=== PATIENT | female | born 1955 | race African-American/Black ===

== ENCOUNTER → 2018-12-09 | Day surgery (SDC) | payer MEDICARE, OTHER ==
[2018-12-06 15:40] LABS: BASOPHILS % 0.3 % (0.0-1.0); EOSINOPHILS # (AUTO) 0.3 (0.0-0.4); EOSINOPHILS % 3.6 % (0.0-6.0); HEMATOCRIT 40.4 % (34.2-44.1); HEMOGLOBIN 12.8 g/dL (12.0-16.0); LYMPHOCYTES # (AUTO) 2.4 (1.0-3.2); LYMPHOCYTES % 25.4 % (18.0-39.1); MEAN CORPUSCULAR HEMOGLOBIN 26.7 pg (28-32); MEAN CORPUSCULAR HGB CONC 31.7 g/dL (31-35); MEAN CORPUSCULAR VOLUME 84.2 fL (81-99); MONOCYTES # (AUTO) 0.7 (0.2-0.8); MONOCYTES % 7.2 % (4.4-11.3); NEUTROPHILS # (AUTO) 5.9 (2.1-6.9); NEUTROPHILS % 63.2 % (38.7-80.0); PLATELET COUNT 228 x10e3/uL (140-360); RED CELL DISTRIBUTION WIDTH 13.7 % (11.7-14.4)
[~2018-12-09] MED LIST: ANUSOL-HC30 GM RC; ASPIRIN325 MG PO; BUPROPION HCL75 MG PO; CLOPIDOGREL75 MG PO; FENTANYL CITRATE/PF 100MCG/2 ML INJ ONE; FOLIC ACID1 MG PO; FUROSEMIDE40 MG PO; HYDROCORTISONE25 MG RC; HYDROXYZINE HCL25 MG PO; LEVOTHYROXINE50 MCG PO; MONTELUKAST SOD10 MG PO; NORCO 10-325 T1 EACH PO; POTASSIUM CHLO10 ME1 PO; PROPOFOL IV EMULSION 10 MG/ML 20 ML VIAL ONE; PROVENTIL HFA6.7 GM INH; TRUSOPT10 ML OU
--- OUTSIDE RECORDS SUMMARY | 2018-12-09 08:08 | XMS REPORT | Continuity of Care Document ---
Author Author [facility] Interface Address Unknown Phone Unavailable Problems Problem Status Onset Date Classification Date Reported Comments Source Discharge Diagnosis: Medication reaction 08/03/2016 08/06/2016 [facility] OTHER Active 08/03/2016 [facility] ACUTE CVA, NON TPA Active 05/25/2016 [facility] NO BALANCE Active 05/25/2016 [facility] SYNCOPE Active 03/11/2016 [facility] DELIRIUM WORKUP Active 03/11/2016 [facility] LEFT SIDE SIDE Active 12/25/2014 [facility] Discharge Diagnosis: Poison trevon dermatitis 06/29/2014 07/02/2014 [facility] POISON TREVON FACE Active 06/29/2014 [facility] Discharge Diagnosis: Acute gastritis 04/05/2014 04/07/2014 [facility] ABD PAIN Active 03/30/2014 [facility] 511 Active 11/01/2011 [facility] 511. Active 11/01/2011 [facility] Back ache Active Problem 11/03/2011 [facility] Bronchitis Active Problem 11/03/2011 [facility] Depression Active Problem 11/03/2011 [facility] Asthma Resolved Problem 08/06/2016 [facility] Back ache Active Problem 08/06/2016 [facility] Bronchitis Active Problem 08/06/2016 [facility] CVA (<span [id number]</span>) Resolved Problem 08/06/2016 [facility] Depression Active Problem 08/06/2016 [facility] Chronic back pain Resolved Problem 08/06/2016 [facility] Chronic knee instability<sup>1</sup> Resolved Problem 08/06/2016 pain [facility] COPD Resolved Problem 08/06/2016 [facility] Glaucoma Resolved Problem 08/06/2016 [facility] TIA Resolved Problem 08/06/2016 [facility] PLEURISY W/O EFFUS OR TB Active [facility] Medications Medication Details Route Status Patient Instructions Ordering Provider Order Date Source Zofran 4 mg, Route: IVP, Drug form: INJ, ONCE, Dosing Weight 123.636, kg, Priority: STAT, Start date: 08/03/16 20:05:00 CDT, Stop date: 08/03/16 20:05:00 CDT Inactive 08/04/2016 [facility] Ativan 1 mg, Route: IVP, Drug form: INJ, ONCE, Dosing Weight 123.636, kg, Priority: STAT, Start date: 08/03/16 17:59:00 CDT, Stop date: 08/03/16 17:59:00 CDT Inactive 08/03/2016 [facility] Sodium Chloride 0.154 MEQ/ML Injectable Solution 1,000 mL, Rate: 125 ml/hr, Infuse over: 8 hr, Route: IV, Dosing Weight 123.636 kg, Total Volume: 1,000, Priority: STAT, Start date: 08/03/16 17:44:00 CDT, Duration: 1 doses or times, Stop date: 08/04/16 1:43:00 CDT Inactive 08/03/2016 [facility] Phenergan 25 mg, Route: IVPB, ONCE, Dosing Weight 123.636, kg, Priority: STAT, Start date: 08/03/16 17:44:00 CDT, Stop date: 08/03/16 17:44:00 CDT Inactive 08/03/2016 [facility] Folic Acid 1 mg, 1 tab, Route: PO, Drug form: TAB, Daily, Dosing Weight 129.148, kg, Start date: 05/27/16 9:00:00 CDT, Duration: 30 day, Stop date: 06/25/16 9:00:00 CDTNotes: (Same as: Folvite) Inactive 05/27/2016 [facility] Plavix 75 mg, 1 tab, Route: PO, Drug form: TAB, Daily, Dosing Weight 129.148, kg, Start date: 05/27/16 9:00:00 CDT, Duration: 30 day, Stop date: 06/25/16 9:00:00 CDTNotes: (Same As: Plavix) Inactive 05/27/2016 [facility] Aspirin 325 MG Oral Tablet 325 mg, 1 tab, Route: PO, Drug form: TAB, Daily, Dosing Weight 129.148, kg, Start date: 05/27/16 9:00:00 CDT, Duration: 30 day, Stop date: 06/25/16 9:00:00 CDTNotes: Take with food. Inactive 05/27/2016 [facility] Furosemide 40 MG Oral Tablet [Lasix] 40 mg, 1 tab, Route: PO, Drug form: TAB, Daily, Dosing Weight 129.148, kg, Start date: 05/27/16 9:00:00 CDT, Duration: 30 day, Stop date: 06/25/16 9:00:00 CDTNotes: (Same as: Lasix) May cause GI upset. Give with food or milk. Inactive 05/27/2016 [facility] Synthroid 100 microgram, 1 tab, Route: PO, Drug form: TAB, Q6AM, Dosing Weight 129.148, kg, Start date: 05/27/16 6:00:00 CDT, Duration: 30 day, Stop date: 06/25/16 6:00:00 CDTNotes: Take 1 hour before or 2 hours after meal; Enteral feeds may interefere with the absorption of this medication. (Same as:Levothroid, Synthroid) Inactive 05/27/2016 [facility] Clonazepam 1 mg, 1 tab, Route: PO, Drug form: TAB, Bedtime, Dosing Weight 129.148, kg, Start date: 05/26/16 21:00:00 CDT, Duration: 30 day, Stop date: 06/24/16 21:00:00 CDTNotes: (Same As: KlonoPIN) No Longer Active 05/27/2016 [facility] Lipitor 20 mg, 2 tab, Route: PO, Drug form: TAB, Bedtime, Dosing Weight 129.148, kg, Start date: 05/26/16 21:00:00 CDT, Duration: 30 day, Stop date: 06/24/16 21:00:00 CDTNotes: (Same As: Lipitor) No Longer Active 05/27/2016 [facility] atorvastatin 80 mg, 2 tab, Route: PO, Drug form: TAB, Bedtime, Dosing Weight 129.091, kg, Start date: 05/26/16 21:00:00 CDT, Duration: 30 day, Stop date: 06/24/16 21:00:00 CDTNotes: (Same as: Lipitor) No Longer Active 05/27/2016 [facility] Singulair 5 mg, 1 tab, Route: CHEW, Drug form: CHEWTAB, Bedtime, Dosing Weight 129.148, kg, Start date: 05/26/16 21:00:00 CDT, Duration: 30 day, Stop date: 06/24/16 21:00:00 CDTNotes: (Same as:Singulair) No Longer Active 05/27/2016 [facility] Flonase 0.05 mg/inh nasal spray 1 spray, Route: NASAL, Drug Form: SPRY, Dosing Weight 129.148, kg, BID, Start date: 05/26/16 17:00:00 CDT, Duration: 30 day, Stop date: 06/25/16 9:00:00 CDTNotes: (Same as: Flonase) No Longer Active 05/26/2016 [facility] Symbicort 160/4.5 inhalation aerosol with adapter 2 inhalation, Route: INHALATION, Drug Form: AERO/A, Dosing Weight 129.148, kg, BID, Start date: 05/26/16 17:00:00 CDT, Duration: 30 day, Stop date: 06/25/16 9:00:00 CDTNotes: (Same as: Symbicort) WASTE: Aerosol - Return to Pharmacy No Longer Active 05/26/2016 [facility] Potassium Chloride 10 MEQ Extended Release Tablet 10 mEq, 1 tab, Route: PO, Drug form: ERTAB, BID, Dosing Weight 129.148, kg, Start date: 05/26/16 17:00:00 CDT, Duration: 30 day, Stop date: 06/25/16 9:00:00 CDTNotes: (Same as: K-Dur 10) "Do Not Crush" With food and full glass of water No Longer Active 05/26/2016 [facility] Ativan 2 mg, 1 mL, Route: IVP, Drug form: INJ, ONCE, Dosing Weight 129.148, kg, PRN Other -See Comment, Start date: 05/26/16 13:56:00 CDT, before MRI examNotes: (Same as: Ativan) Inactive 05/26/2016 [facility] Wellbutrin XL 150 mg, 1 tab, Route: PO, Drug form: ERTAB, Q24H, Dosing Weight 129.148, kg, Start date: 05/26/16 12:00:00 CDT, Duration: 30 day, Stop date: 06/24/16 12:00:00 CDTNotes: (Same as: Wellbutrin XL) "Do Not Crush" No Longer Active 05/26/2016 [facility] Enoxaparin 40 mg, 0.4 mL, Route: SUB-Q, Drug form: INJ, [id number], Dosing Weight 129.148, kg, Consider for obese patients, Start date: 05/26/16 12:00:00 CDT, Duration: 30 day, Stop date: 06/25/16 0:00:00 CDTNotes: (Same as: Lovenox) No Longer Active 05/26/2016 [facility] Carafate 1 gm, 1 tab, Route: PO, Drug form: TAB, QID-Before Meals, Dosing Weight 129.148, kg, Start date: 05/26/16 11:30:00 CDT, Duration: 30 day, Stop date: 06/25/16 7:30:00 CDTNotes: May interfere w/enteral feeds - Take 1 hr before or 2 hr after antacids, dairy pdt, meals & minerals - On empty stomach. (Same As: Carafate) No Longer Active 05/26/2016 [facility] Acetaminophen 325 MG / Hydrocodone Bitartrate 10 MG Oral Tablet [Carnation 10/325] 1 tab, Route: PO, Drug Form: TAB, Dosing Weight 129.148, kg, BID, PRN Pain Score 4-6, Start date: 05/26/16 11:24:00 CDT, Duration: 30 day, Stop date: 06/25/16 11:23:00 CDTNotes: Do not exceed 4gm/day of acetaminophen. (Same as: Carnation 325/10) No Longer Active 05/26/2016 [facility] 200 ACTUAT Albuterol 0.09 MG/ACTUAT Metered Dose Inhaler 2 puff, Route: INHALATION, Drug Form: AERO/A, Dosing Weight 129.148, kg, QID, PRN Wheezing, Start date: 05/26/16 11:21:00 CDT, Duration: 30 day, Stop date: 06/25/16 11:20:00 CDTNotes: Albuterol 90 microgram/inh 8gm HFA WASTE: Aerosol - Return to Pharmacy Same as: Ventolin, Proventil No Longer Active 05/26/2016 [facility] Ativan 2 mg, 1 mL, Route: IVP, Drug form: INJ, ONCE, Dosing Weight 129.148, kg, PRN Other -See Comment, Start date: 05/26/16 11:12:00 CDT, Stop date: 05/26/16 11:12:00 CDT, before MRI examNotes: (Same as: Ativan) Inactive 05/26/2016 [facility] metoprolol tartrate 12.5 mg, 0.5 tab, Route: PO, Drug form: TAB, Q12H, Dosing Weight 129.091, kg, Start date: 05/26/16 9:00:00 CDT, Duration: 30 day, Stop date: 06/24/16 21:00:00 CDTNotes: (Same as: Lopressor) No Longer Active 05/26/2016 [facility] pneumococcal capsular polysaccharide type 1 vaccine / pneumococcal capsular polysaccharide type 10A vaccine / pneumococcal capsular polysaccharide type 11A vaccine / pneumococcal capsular polysaccharide type 12F vaccine / pneumococcal capsular polysacchar 0.5 mL, Route: IM, Drug Form: INJ, Daily, Start date: 05/26/16 9:00:00 CDT, Duration: 1 doses or times, Stop date: 05/26/16 9:00:00 CDTNotes: (Same as: Pneumovax 23) Refrigerate Inactive 05/26/2016 [facility] Saline Flush 0.9% 10 ml, Route: IVP, Drug Form: INJ, Dosing Weight 129.091, kg, Q12H, Start date: 05/26/16 9:00:00 CDT, Duration: 30 day, Stop date: 06/24/16 21:00:00 CDTNotes: (Same as: BD Posiflush) No Longer Active 05/26/2016 [facility] Famotidine 20 mg, 1 tab, Route: PO, Drug form: TAB, Q12H, Dosing Weight 129.091, kg, Start date: 05/26/16 9:00:00 CDT, Duration: 30 day, Stop date: 06/24/16 21:00:00 CDTNotes: (Same as: Pepcid) No Longer Active 05/26/2016 [facility] Zofran 4 mg, 2 mL, Route: IV, Drug form: INJ, Q4H, Dosing Weight 129.148, kg, PRN as needed for nausea/vomiting, Start date: 05/26/16 6:24:00 CDT, Duration: 30 day, Stop date: 06/25/16 6:23:00 CDTNotes: (Same as: Zofran) MEDICATION WASTE Product Size: 4 mg Product Wasted: ___ mg No Longer Active 05/26/2016 [facility] Aspirin 325 MG Oral Tablet 325 mg=1 tab, PO, Daily, # 30 tab, 0 Refill(s) Active 05/26/2016 [facility] pregabalin 100 MG Oral Capsule [Lyrica] 100 mg=1 cap, PO, Bedtime, 0 Refill(s) Active 05/26/2016 [facility] Sucralfate 1000 MG Oral Tablet [Carafate] 1 gm=1 tab, PO, QID-Before Meals, # 120 tab, 0 Refill(s) Active 05/26/2016 [facility] Morphine 2 mg, 1 mL, Route: IVP, Drug form: INJ, Q4H, Dosing Weight 129.091, kg, PRN Chest Pain, Start date: 05/26/16 5:00:00 CDT, Duration: 30 day, Stop date: 06/25/16 4:59:00 CDTNotes: (Same as:MORPhine Sulfate) No Longer Active 05/26/2016 [facility] Zofran 4 mg, Route: IVP, Drug form: INJ, ONCE, Dosing Weight 129.091, kg, Start date: 05/26/16 3:03:00 CDT, Stop date: 05/26/16 3:03:00 CDT Inactive 05/26/2016 [facility] Morphine 2 mg, 1 mL, Route: IVP, Drug form: INJ, ONCE, Dosing Weight 129.091, kg, Start date: 05/26/16 3:03:00 CDT, Stop date: 05/26/16 3:03:00 CDTNotes: (Same as:MORPhine Sulfate) Inactive 05/26/2016 [facility] Nitroglycerin 0.4 MG Sublingual Tablet 0.4 mg, 1 tab, Route: SL, Drug form: TAB, Q5Min, Dosing Weight 129.091, kg, PRN Chest Pain, Start date: 05/26/16 2:58:00 CDT, Duration: 30 day, Stop date: 06/25/16 2:57:00 CDTNotes: (Same as:Nitroquick, Nitrostat) "Do Not Crush" Sublingual tablet No Longer Active 05/26/2016 [facility] Morphine 2 mg, Route: IVP, ONCE, Dosing Weight 129.091, kg, Start date: 05/26/16 2:52:00 CDT, Stop date: 05/26/16 2:52:00 CDT Inactive 05/26/2016 [facility] Nitroglycerin 0.4 MG Sublingual Tablet 0.4 mg, 1 tab, Route: SL, Drug form: TAB, Q5Min, Dosing Weight 129.091, kg, PRN Chest Pain, Start date: 05/26/16 2:51:00 CDT, Duration: 30 day, Stop date: 06/25/16 2:50:00 CDTNotes: (Same as:Nitroquick, Nitrostat) "Do Not Crush" Sublingual tablet No Longer Active 05/26/2016 [facility] Aspirin 325 MG Enteric Coated Tablet 325 mg, 1 tab, Route: PO, Drug form: ECTAB, Daily, Dosing Weight 129.091, kg, Start date: 05/26/16 1:00:00 CDT, Duration: 30 day, Stop date: 06/24/16 9:00:00 CDTNotes: (Do Not Crush) Do not crush or chew. No Longer Active 05/26/2016 [facility] Saline Flush 0.9% 10 ml, Route: IVP, Drug Form: INJ, Dosing Weight 129.091, kg, PRN, PRN Line Flush, Start date: 05/26/16 0:37:00 CDT, Duration: 30 day, Stop date: 06/25/16 0:36:00 CDTNotes: (Same as: BD Posiflush) No Longer Active 05/26/2016 [facility] Sodium Chloride 0.154 MEQ/ML Injectable Solution 1,000 mL, Rate: 75 ml/hr, Infuse over: 13.3 hr, Route: IV, Dosing Weight 129.091 kg, Total Volume: 1,000, Start date: 05/26/16 0:37:00 CDT, Duration: 30 day, Stop date: 06/25/16 0:36:00 CDT No Longer Active 05/26/2016 [facility] Aspirin 325 MG Oral Tablet 325 mg, Route: PO, Drug form: TAB, ONCE, Dosing Weight 129.091, kg, Priority: STAT, Start date: 05/25/16 23:25:00 CDT, Stop date: 05/25/16 23:25:00 CDT Inactive 05/26/2016 [facility] Dilaudid 1 mg, 1 mL, Route: IVP, Drug form: INJ, ONCE, Dosing Weight 129.091, kg, Priority: STAT, Start date: 05/25/16 23:03:00 CDT, Stop date: 05/25/16 23:03:00 CDT Inactive 05/26/2016 [facility] Sodium Chloride 0.154 MEQ/ML Injectable Solution 1,000 mL, 1,000 ml/hr, Infuse Over: 1 hr, Route: IV, 1,000, Drug form: INJ, ONCE, Priority: STAT, Dosing Weight 129.091 kg, Start date: 05/25/16 18:28:00 CDT, Duration: 1 doses or times, Stop date: 05/25/16 18:28:00 CDT Inactive 05/25/2016 [facility] Saline Flush 0.9% 10 mL, Route: IVP, Drug Form: INJ, Dosing Weight 129.091, kg, PRN, PRN Line Flush, Start date: 05/25/16 18:28:00 CDT, Duration: 30 day, Stop date: 06/24/16 18:27:00 CDTNotes: (Same as: BD Posiflush) No Longer Active 05/25/2016 [facility] atorvastatin 20 MG Oral Tablet [Lipitor] 20 mg=1 tab, PO, Bedtime, # 30 tab, 0 Refill(s) Active 03/13/2016 [facility] Sulfamethoxazole 800 MG / Trimethoprim 160 MG Oral Tablet [Bactrim] 1 tab, PO, BID, X 6 day, # 12 tab, 0 Refill(s) Active 03/13/2016 [facility] 200 ACTUAT Albuterol 0.09 MG/ACTUAT Metered Dose Inhaler 2 puff, INHALATION, QID, PRN Wheezing, # 17 gm, 0 Refill(s) Active 03/13/2016 [facility] Aspirin 81 MG Enteric Coated Tablet 81 mg=1 tab, PO, Daily, 0 Refill(s) Active 03/13/2016 [facility] Albuterol 0.83 MG/ML Inhalant Solution 2.49 mg, 3 mL, Route: NEB, Drug form: SOLN, PRN, Dosing Weight 129.091, kg, PRN Respiratory Protocol, Priority: NOW, Start date: 03/13/16 16:15:00 CDT, Duration: 30 day, Stop date: 04/12/16 16:14:00 CDTNotes: SEE RT DOCUMENTATION (Same as: Proventil) Inactive 03/13/2016 [facility] Singulair 5 mg, 1 tab, Route: CHEW, Drug form: CHEWTAB, Bedtime, Dosing Weight 100, kg, Start date: 03/12/16 21:00:00 CDT, Duration: 30 day, Stop date: 04/10/16 21:00:00 CDTNotes: (Same as:Singulair) No Longer Active 03/13/2016 [facility] Clonazepam 1 mg, 1 tab, Route: PO, Drug form: TAB, Bedtime, Dosing Weight 100, kg, Start date: 03/12/16 21:00:00 CDT, Duration: 30 day, Stop date: 04/10/16 21:00:00 CDTNotes: (Same As: KlonoPIN) No Longer Active 03/13/2016 [facility] Wellbutrin XL 150 mg, 1 tab, Route: PO, Drug form: ERTAB, Daily, Start date: 03/12/16 12:30:00 CDT, Duration: 30 day, Stop date: 04/11/16 9:00:00 CDTNotes: (Same as: Wellbutrin XL) "Do Not Crush" No Longer Active 03/12/2016 [facility] Aspirin 325 MG Oral Tablet 325 mg=1 tab, PO, Daily, 0 Refill(s) No Longer Active 03/12/2016 [facility] Potassium Chloride 10 MEQ Extended Release Tablet 10 mEq=1 tab, PO, BID, 0 Refill(s) Active 03/12/2016 [facility] Levothyroxine Sodium 0.1 MG Oral Tablet [Synthroid] 100 microgram=1 tab, PO, Daily, 0 Refill(s) Active 03/12/2016 [facility] 24 HR Bupropion Hydrochloride 150 MG Extended Release Tablet [Wellbutrin] 150 mg=1 tab, PO, Q24H, 0 Refill(s) Active 03/12/2016 [facility] Saline Flush 0.9% 10 ml, Route: IVP, Drug Form: INJ, Dosing Weight 100, kg, Q12H, Start date: 03/12/16 9:00:00 CDT, Duration: 30 day, Stop date: 04/10/16 21:00:00 CDTNotes: Same as: BD Posiflush Sterile No Longer Active 03/12/2016 [facility] Folic Acid 1 mg, 1 tab, Route: PO, Drug form: TAB, Daily, Dosing Weight 100, kg, Start date: 03/12/16 9:00:00 CDT, Duration: 30 day, Stop date: 04/10/16 9:00:00 CDTNotes: (Same as: Folvite) No Longer Active 03/12/2016 [facility] Plavix 75 mg, 1 tab, Route: PO, Drug form: TAB, Daily, Dosing Weight 100, kg, Start date: 03/12/16 9:00:00 CDT, Duration: 30 day, Stop date: 04/10/16 9:00:00 CDTNotes: (Same As: Plavix) No Longer Active 03/12/2016 [facility] Wellbutrin SR 150 mg, 1 tab, Route: PO, Drug form: ERTAB, Daily, Dosing Weight 100, kg, Start date: 03/12/16 9:00:00 CDT, Duration: 30 day, Stop date: 04/10/16 9:00:00 CDTNotes: (Do not crush) (Same As: Wellbutrin SR) Inactive 03/12/2016 [facility] Aspirin 81 MG Enteric Coated Tablet 81 mg, 1 tab, Route: PO, Drug form: ECTAB, Daily, Dosing Weight 100, kg, Start date: 03/12/16 9:00:00 CDT, Duration: 30 day, Stop date: 04/10/16 9:00:00 CDTNotes: Do not crush or chew. (Same As: Ecotrin) No Longer Active 03/12/2016 [facility] Lovenox 40 mg, 0.4 mL, Route: SUB-Q, Drug form: INJ, Daily, Dosing Weight 100, kg, Start date: 03/12/16 9:00:00 CDT, Duration: 30 day, Stop date: 04/10/16 9:00:00 CDTNotes: (Same as: Lovenox) No Longer Active 03/12/2016 [facility] Symbicort 160/4.5 inhalation aerosol with adapter 2 inhalation, Route: INHALATION, Drug Form: AERO/A, Dosing Weight 100, kg, RBID, Start date: 03/12/16 8:00:00 CDT, Duration: 30 day, Stop date: 04/10/16 20:00:00 CDTNotes: (Same as: Symbicort) WASTE: Aerosol - Return to Pharmacy No Longer Active 03/12/2016 [facility] Synthroid 75 microgram, 1 tab, Route: PO, Drug form: TAB, [id number], Dosing Weight 100, kg, Start date: 03/12/16 6:30:00 CDT, Duration: 30 day, Stop date: 04/10/16 6:30:00 CDTNotes: Take 1 hour before or 2 hours after meal; Enteral feeds may interefere with the absorption of this medication. (Same as:Synthroid, Levothroid) No Longer Active 03/12/2016 [facility] Naproxen 500 mg, 1 tab, Route: PO, Drug form: TAB, ONCE, Dosing Weight 100, kg, Start date: 03/12/16 0:04:00 CDT, Stop date: 03/12/16 0:04:00 CDTNotes: (Same as: Naprosyn) Take with food. Inactive 03/12/2016 [facility] Ceftriaxone 1 gm, Route: IVPB, Drug form: PDR/INJ, [id number], Dosing Weight 100, kg, Start date: 03/12/16 0:00:00 CDT, Duration: 30 day, Stop date: 04/10/16 0:00:00 CDTNotes: (Same As: Rocephin). Use with 100 mL NS and infuse over 30 min MEDICATION WASTE Product Size: 1000 mg Product Wasted: ___ mg No Longer Active 03/12/2016 [facility] Acetaminophen 325 MG / Hydrocodone Bitartrate 10 MG Oral Tablet [Carnation 10/325] 1 tab, Route: PO, Drug Form: TAB, Dosing Weight 100, kg, Q6H, PRN Pain Score 7-10, Start date: 03/11/16 23:43:00 CDT, Duration: 30 day, Stop date: 04/10/16 23:42:00 CDTNotes: Do not exceed 4gm/day of acetaminophen. (Same as: Carnation 325/10) No Longer Active 03/12/2016 [facility] Aspirin 81 MG Enteric Coated Tablet 81 mg=1 tab, PO, Daily, # 90 tab, 3 Refill(s) No Longer Active 03/12/2016 [facility] Zofran 4 mg, 2 mL, Route: IV, Drug form: INJ, Q8H, Dosing Weight 100, kg, PRN as needed for nausea/vomiting, Start date: 03/11/16 23:38:00 CDT, Duration: 30 day, Stop date: 04/10/16 23:37:00 CDTNotes: (Same as: Zofran) MEDICATION WASTE Product Size: 4 mg Product Wasted: ___ mg No Longer Active 03/12/2016 [facility] Saline Flush 0.9% 10 ml, Route: IVP, Drug Form: INJ, Dosing Weight 100, kg, PRN, PRN Line Flush, Start date: 03/11/16 23:36:00 CDT, Duration: 30 day, Stop date: 04/10/16 23:35:00 CDTNotes: Same as: BD Posiflush Sterile No Longer Active 03/12/2016 [facility] Levothyroxine Sodium 0.075 MG Oral Tablet [Synthroid] 75 microgram=1 tab, PO, Daily, # 30 tab, 0 Refill(s) No Longer Active 03/12/2016 [facility] Acetaminophen 325 MG / Hydrocodone Bitartrate 10 MG Oral Tablet [Carnation 10/325] 1 tab, PO, BID, PRN for pain, # 24 tab, 0 Refill(s) Active 03/12/2016 [facility] Furosemide 40 MG Oral Tablet [Lasix] 40 mg=1 tab, PO, Daily, # 30 tab, 0 Refill(s) Active 03/12/2016 [facility] clonazePAM 1 mg oral tablet 1 mg=1 tab, PO, Bedtime, 0 Refill(s) Active 03/12/2016 [facility] Morphine 4 mg, 1 mL, Route: IVP, Drug form: INJ, ONCE, Dosing Weight 100, kg, Priority: STAT, Start date: 03/11/16 20:21:00 CDT, Stop date: 03/11/16 20:21:00 CDTNotes: (Same as:MORPhine Sulfate) Inactive 03/12/2016 [facility] iodixanol 100 mL, Route: IVP, Drug Form: SOLN, Dosing Weight 100, kg, ONCALL, STAT, Start date: 03/11/16 20:19:00 CDT, Duration: 1 doses or times, Dose=2.2ml/kg, Max [id number] -- "To be infused by Radiology Staff ONLY" Inactive 03/12/2016 [facility] Saline Flush 0.9% 10 mL, Route: IVP, Drug Form: INJ, Dosing Weight 100, kg, PRN, PRN Line Flush, Start date: 03/11/16 19:36:00 CDT, Duration: 30 day, Stop date: 04/10/16 19:35:00 CDTNotes: (Same as: BD Posiflush) No Longer Active 03/12/2016 [facility] predniSONE 20 mg oral tablet See Special Instructions, PO, Daily, 12 day regimen: Days 1-4 - 60 mg (3 tabs) daily Days 5-8 - 40 mg (2 tab) daily Days 9-12 - 20 mg (1 tab) daily, # 24 tab, 0 Refill(s)Special Instructions: 12 day regimen: Days 1-4 - 60 mg (3 tabs) daily Days 5-8 - 40 mg (2 tab) daily Days 9-12 - 20 mg (1 tab) daily Active 06/30/2014 [facility] Benadryl 50 mg, Route: PO, Drug form: CAP, ONCE, Dosing Weight 109.091, kg, Priority: STAT, Start date: 06/29/14 18:38:00, Stop date: 06/29/14 18:38:00 Inactive 06/29/2014 [facility] Famotidine 40 MG Oral Tablet [Pepcid] 1 tab, Route: PO, ONCE, Dosing Weight 109.091, kg, Start date: 06/29/14 18:38:00, Stop date: 06/29/14 18:38:00 Inactive 06/29/2014 [facility] Depo-Medrol 80 mg, 1 mL, Route: IM, Drug form: SUSP, ONCE, Dosing Weight 109.091, kg, Start date: 06/29/14 18:38:00, Stop date: 06/29/14 18:38:00Notes: (methylprednisolone acetate 80 mg/1 ml INJ VL) (Same as:Depo- Medrol) For IM use only. Inactive 06/29/2014 [facility] Famotidine 20 MG Oral Tablet 20 mg=1 tab, PO, BID, # 60 tab, 0 Refill(s) Active 04/05/2014 [facility] GI cocktail 30 mL, Route: PO, Dosing Weight 145.455, kg, ONCE, STAT, Start date: 04/05/14 4:32:00, Stop date: 04/05/14 4:32:00 Inactive 04/05/2014 [facility] Allergies, Adverse Reactions, Alerts Substance Category Reaction Severity Reaction type Status Date Reported Comments Source Latex Assertion Drug allergy Active [facility] penicillins Assertion Drug allergy Active [facility] theophylline Assertion Drug allergy Active [facility] Tylenol Assertion Drug allergy Active [facility] iodine Assertion Drug allergy Active [facility] Suboxone Assertion Drug allergy Active [facility] Tylenol<sup>1</sup> Assertion Drug allergy Active Pt only allergic to IV Acetaminophen. clarified with pt [facility] Immunizations Immunization Date Given Site Status Last Updated Comments Source pneumococcal 23-valent vaccine 05/26/2016 Not Given [facility] Results Order Name Results Value Reference Range Date Interpretation Comments Source CARDIAC ENZYMES Troponin-I null 0.00 - 0.40 08/04/2016 [facility] CARDIAC ENZYMES Troponin-I null 0.00 - 0.40 08/03/2016 [facility] CHEM PANEL B/C Ratio 14 6 - 25 08/03/2016 [facility] CHEM PANEL AGAP 15.3 meq/L 10.0 - 20.0 08/03/2016 [facility] CHEM PANEL A/G Ratio 1.1 0.7 - 1.6 08/03/2016 [facility] CHEM PANEL Globulin 3.4 g/dL 2.7 - 4.2 08/03/2016 [facility] CHEM PANEL eGFR 100 mL/min/1.73m2 08/03/2016 Result Comment: The eGFR is calculated using the CKD-EPI formula. In most young, healthy individuals the eGFR will be >90 mL/min/1.73m2. The eGFR declines with age. An eGFR of 60-89 may be normal in some populations, particularly the elderly, for whom the CKD-EPI formula has not been extensively validated. Use of the eGFR is not recommended in the following populations: Individuals with unstable creatinine concentrations, including patients and those with serious co-morbid conditions. Patients with extremes in muscle mass or diet. The data above are obtained from the National Kidney Disease Education Program (NKDEP) which additionally recommends that when the eGFR is used in patients with extremes of body mass index for purposes of drug dosing, the eGFR should be multiplied by the estimated BMI. [facility] CHEM PANEL Calcium Lvl 8.5 mg/dL 8.5 - 10.5 08/03/2016 [facility] CHEM PANEL BUN 11 mg/dL 7 - 22 08/03/2016 [facility] CHEM PANEL Glucose Lvl 137 mg/dL 70 - 99 08/03/2016 [facility] CHEM PANEL Creatinine Lvl 0.76 mg/dL 0.50 - 1.40 08/03/2016 [facility] CHEM PANEL Sodium Lvl 141 meq/L 135 - 145 08/03/2016 [facility] CHEM PANEL Potassium Lvl 3.3 meq/L 3.5 - 5.1 08/03/2016 [facility] CHEM PANEL Chloride Lvl 102 meq/L 95 - 109 08/03/2016 [facility] CHEM PANEL CO2 27 meq/L 24 - 32 08/03/2016 [facility] CHEM PANEL AST 16 unit/L 0 - 37 08/03/2016 [facility] CHEM PANEL ALT 11 unit/L 0 - 65 08/03/2016 [facility] CHEM PANEL Bili Total 0.6 mg/dL 0.2 - 1.3 08/03/2016 [facility] CHEM PANEL Alk Phos 92 unit/L 39 - 136 08/03/2016 [facility] CHEM PANEL Total Protein 7.1 g/dL 6.4 - 8.4 08/03/2016 [facility] CHEM PANEL Albumin Lvl 3.7 g/dL 3.5 - 5.0 08/03/2016 [facility] HEMATOLOGY Segs 44.1 % 45.0 - 75.0 08/03/2016 [facility] HEMATOLOGY Monocytes 6.4 % 2.0 - 12.0 08/03/2016 [facility] HEMATOLOGY Lymphocytes 44.9 % 20.0 - 40.0 08/03/2016 [facility] HEMATOLOGY Basophils 0.3 % 0.0 - 1.0 08/03/2016 [facility] HEMATOLOGY Eosinophils 4.3 % 0.0 - 4.0 08/03/2016 [facility] HEMATOLOGY Segs-Bands # 4.7 K/CMM 1.5 - 8.1 08/03/2016 [facility] HEMATOLOGY Lymphocytes # 4.8 K/CMM 1.0 - 5.5 08/03/2016 [facility] HEMATOLOGY Eosinophils # 0.5 K/CMM 0.0 - 0.5 08/03/2016 [facility] HEMATOLOGY Monocytes # 0.7 K/CMM 0.0 - 0.8 08/03/2016 [facility] HEMATOLOGY RBC 4.82 M/CMM 4.20 - 5.40 08/03/2016 [facility] HEMATOLOGY Hgb 13.2 g/dL 12.0 - 16.0 08/03/2016 [facility] HEMATOLOGY Hct 39.7 % 36.0 - 48.0 08/03/2016 [facility] HEMATOLOGY MCV 82.4 fL 80.0 - 98.0 08/03/2016 [facility] HEMATOLOGY MCH 27.4 pg 27.0 - 31.0 08/03/2016 [facility] HEMATOLOGY MCHC 33.2 g/dL 32.0 - 36.0 08/03/2016 [facility] HEMATOLOGY RDW 15.2 % 11.5 - 14.5 08/03/2016 [facility] HEMATOLOGY Platelet 224 K/CMM 133 - 450 08/03/2016 [facility] HEMATOLOGY MPV 8.2 fL 7.4 - 10.4 08/03/2016 [facility] HEMATOLOGY WBC 10.6 K/CMM 3.7 - 10.4 08/03/2016 [facility] Chest 1view DX Chest 1view DX EXAM: XR CHEST 1 VIEW DATE: 08/03/2016 at 1743 hours INDICATION: Chest pain COMPARISON: Chest radiograph on 05/25/2016 TECHNIQUE: AP chest FINDINGS: Lines and tubes: None. Lungs and pleura: The lung volumes are low with prominence of the interstitial vasculature which could be related to underinflation. There is prominence of the pulmonary vasculature. No pleural fluid or focal consolidation. Heart and mediastinum: The mediastinal silhouette is widened which is in part related to moderate rotation to the right. The cardiac silhouette is unchanged. Bones: No acute bony abnormality is identified. Abdomen: Left upper quadrant surgical clips are redemonstrated. IMPRESSION: Moderate mediastinal widening which is in part related to moderate rotation to the right and mediastinal fat. If indicated, an upright PA and lateral two view chest radiograph would be recommended for further evaluation. 08/03/2016 - - This report was dictated by a Merchandising Execution Associate/Fellow. I have personally reviewed the images as well as the Resident's interpretation and agree with the findings. Read by: Namrata Guillen MD Resident: Namrata Guillen MD Dictated Date/time: 08/03/16 17:49 Electronically Signed by: Talat Bladwin MD 08/03/16 21:47 FINAL REPORT [facility] HEMATOLOGY Protein C Func 90 % 72 - 147 05/27/2016 [facility] Protein S Func 67 % 54 - 137 05/27/2016 [facility] dRVV Ratio 0.79 <=1.20 05/27/2016 [facility] Hex Phos N Negative (05/27/16 10:13 AM) Negative 05/27/2016 [facility] Lup Interp Negative for lupus anticoagulant by DRVV screen and hexagonal phospholipidneutralization test. If there is a strong clinical suspicion of lupus anticoagulant,additional testing, to include repeat studies at a clinically appropriate interval and anticardiolipin antibody assays, is recommended.Interpretation performed at [facility]. 05/27/2016 [facility] AT III Func 94 % 77 - 140 05/27/2016 [facility] IMMUNOLOGY Cardiolipin IgA 0.6 APL-U/mL <=19.9 APL 05/27/2016 [facility] Cardiolipin IgM 0.5 MPL-U/mL <=19.9 MPL 05/27/2016 [facility] Cardiolipin IgG null <=19.9 GPL 05/27/2016 [facility] IMMUNOLOGY Beta2-Glycoprotein IgG null <=19.9 unit/mL 05/27/2016 [facility] Beta2-Glycoprotein IgA null <=19.9 unit/mL 05/27/2016 [facility] Beta2-Glycoprotein IgM 0.4 unit/mL <=19.9 unit/mL 05/27/2016 [facility] IMMUNOLOGY JAN Positive *ABN* (05/27/16 10:13 AM) Negative 05/27/2016 [facility] IMMUNOLOGY Homocyst Tot 8.7 umol/L 3.7 - 13.9 05/27/2016 [facility] Homocyst Tot 8.5 umol/L 3.7 - 13.9 05/27/2016 [facility] Cardiolipin IgG null <=19.9 GPL 05/27/2016 [facility] Cardiolipin IgA 0.5 APL-U/mL <=19.9 APL 05/27/2016 [facility] Cardiolipin IgM 0.4 MPL-U/mL <=19.9 MPL 05/27/2016 [facility] JAN Interp Pattern appears mixed Speckled and Homogeneous. 05/27/2016 [facility] JAN Titer 1:320 *ABN* (05/27/16 10:13 AM) Negative 05/27/2016 [facility] Brain wo contrast MRA Brain wo contrast MRA Brain wo contrast MRA CLINICAL HX: Aphasia; COMPARISON: none TECHNIQUE: 3-D [id number] images of the [place] were performed. Images were reformatted in the sagittal and coronal projections. FINDINGS: The petrous, cavernous, and supraclinoid portions of the carotids bilaterally demonstrate normal signal. The A1, A2, M1 and M2 segments of the anterior and middle cerebral arteries do not demonstrate any focal loss of signal to suggest any significant stenosis. No gross aneurysm is visualized in the anterior circulation. Both vertebral arteries, basilar artery, ORNAMENTAL METAL WORKER APPRENTICE, and SCA demonstrate normal signal. The AICAs are not well seen on either side. No gross aneurysm is identified in the posterior circulation. IMPRESSION: No significant abnormality is noted on the MRA of [place]. SL: [id number] 05/26/2016 - - Read by: Rocky Ramires MD Dictated Date/time: 05/26/16 15:43 Electronically Signed by: Rocky Ramires MD 05/26/16 15:46 FINAL REPORT [facility] Brain wo contrast MRI Brain wo contrast MRI Brain wo contrast MRI CLINICAL INDICATION: Aphasia; COMPARISON: CT head 05/25/2016 TECHNIQUE: Multiplanar imaging of the brain was performed without IV contrast. FINDINGS: SUPRATENTORIAL BRAIN: Small nonspecific focus of increased T2 signal is present in the right centrum semiovale. 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 The cortical parenchyma otherwise demonstrates normal signal with appropriate zuniga- white matter differentiation. No areas of restricted diffusion are visualized to suggest an acute infarct. There is no space-occupying lesion, mass effect or midline shift. No extra-axial fluid collection or intraparenchymal hemorrhage. BRAINSTEM AND CEREBELLUM: Cerebellar volume is within normal limits for patient's age.. No CP angle mass is visualized. IACs, brainstem and craniocervical junction are unremarkable. VISUALIZED VESSELS: The expected intracranial flow voids are present. SELLA, SKULL BASE AND ORBITS: The visualized orbits and optic chiasm are unremarkable. Pituitary gland demonstrates normal morphology. PARANASAL SINUSES AND MASTOIDS: The visualized paranasal sinuses are clear. The mastoid air cells are clear. IMPRESSION: No significant acute abnormality is noted on the non-IV contrast MRI of the brain. SL: [id number] 05/26/2016 - - Read by: Rocky Ramires MD Dictated Date/time: 05/26/16 15:32 Electronically Signed by: Rocky Ramires MD 05/26/16 15:42 FINAL REPORT [facility] CARDIAC ENZYMES Troponin-I null 0.00 - 0.40 05/26/2016 [facility] ELECTROLYTES AGAP 8.6 meq/L 10.0 - 20.0 05/26/2016 [facility] ELECTROLYTES Creatinine Lvl 0.85 mg/dL 0.50 - 1.40 05/26/2016 [facility] ELECTROLYTES BUN 14 mg/dL 7 - 22 05/26/2016 [facility] ELECTROLYTES Glucose Lvl 110 mg/dL 70 - 99 05/26/2016 [facility] ELECTROLYTES Calcium Lvl 8.4 mg/dL 8.5 - 10.5 05/26/2016 [facility] ELECTROLYTES eGFR 87 mL/min/1.73m2 05/26/2016 Result Comment: The eGFR is calculated using the CKD-EPI formula. In most young, healthy individuals the eGFR will be >90 mL/min/1.73m2. The eGFR declines with age. An eGFR of 60-89 may be normal in some populations, particularly the elderly, for whom the CKD-EPI formula has not been extensively validated. Use of the eGFR is not recommended in the following populations: Individuals with unstable creatinine concentrations, including patients and those with serious co-morbid conditions. Patients with extremes in muscle mass or diet. The data above are obtained from the National Kidney Disease Education Program (NKDEP) which additionally recommends that when the eGFR is used in patients with extremes of body mass index for purposes of drug dosing, the eGFR should be multiplied by the estimated BMI. [facility] ELECTROLYTES CO2 30 meq/L 24 - 32 05/26/2016 [facility] ELECTROLYTES Chloride Lvl 106 meq/L 95 - 109 05/26/2016 [facility] ELECTROLYTES Potassium Lvl 3.6 meq/L 3.5 - 5.1 05/26/2016 [facility] ELECTROLYTES Sodium Lvl 141 meq/L 135 - 145 05/26/2016 [facility] LIPIDS VLDL 20 05/26/2016 [facility] LIPIDS LDL (Calculated) 76 mg/dL <=99 mg/dL 05/26/2016 [facility] LIPIDS Trig 98 mg/dL <=149 mg/dL 05/26/2016 [facility] LIPIDS Chol 152 mg/dL <=199 mg/dL 05/26/2016 [facility] LIPIDS HDL 56 mg/dL >=61 mg/dL 05/26/2016 [facility] LIPIDS CHD Risk 2.71 3.90 - 5.80 05/26/2016 [facility] SPECIAL CHEMISTRY Hgb A1C 6.0 % <=5.6 % 05/26/2016 [facility] Carotid artery Doppler bilat US Carotid artery Doppler bilat US Patient Name: NAMRATA HORAN : 1955; Age: 60 years y/o Female MR: [id number] Study: Carotid artery Doppler bilat US 05/26/2016 12:37 AM CDT Ordering Physician: Tal Velasquez MD Clinical Indication: Aphasia; Comparison: None TECHNIQUE: Zuniga-scale, color Doppler and spectral Doppler of the carotid arteries was performed. Any reported ICA stenoses indirectly reference the distal internal carotid diameter as the denominator for the stenosis measurement, utilizing consensus panel criteria. FINDINGS: RIGHT: No significant plaque ICA PSV 79 cm/sec CCA PSV 87 cm/sec ICA/CCA ratio 0.9 Vertebral flow is antegrade. External carotid artery is patent. LEFT: No significant plaque ICA PSV 83 cm/sec CCA PSV 109 cm/sec ICA/CCA ratio 0.8 Vertebral flow is antegrade. External carotid artery is patent. IMPRESSION: 1. RIGHT: ICA stenosis <50 % by velocity criteria. 1. LEFT: ICA stenosis <50 % by velocity criteria. Consensus panel Doppler US criteria for diagnosis of ICA stenosis: Stenosis (%) ICA PSV (cm/sec) ICA/CCA ratio <50 <125 <2.0 50-69 125-230 2.0-4.0 >70 but less than >230 >4.0 near occlusion Near occlusion High, low, or Variable undetectable : [id number] 05/26/2016 - - Read by: Darin Devine MD Dictated Date/time: 05/26/16 08:34 Electronically Signed by: Darin Devine MD 05/26/16 08:37 FINAL REPORT [facility] CARDIAC ENZYMES Total CK 51 unit/L 12 - 191 05/26/2016 [facility] CARDIAC ENZYMES Troponin-I null 0.00 - 0.40 05/26/2016 [facility] CHEM PANEL Lactic Acid Lvl 1.9 mMol/L 0.5 - 2.2 05/26/2016 [facility] PTT 25.1 s 22.9 - 35.8 05/26/2016 [facility] PT 13.2 s 12.0 - 14.7 05/26/2016 [facility] INR 0.97 0.85 - 1.17 05/26/2016 [facility] Hgb 13.1 g/dL 12.0 - 16.0 05/26/2016 [facility] RDW 14.5 % 11.5 - 14.5 05/26/2016 [facility] MCV 81.6 fL 80.0 - 98.0 05/26/2016 [facility] MCHC 32.9 g/dL 32.0 - 36.0 05/26/2016 [facility] HEMATOLOGY Hct 39.7 % 36.0 - 48.0 05/26/2016 [facility] HEMATOLOGY MCH 26.8 pg 27.0 - 31.0 05/26/2016 [facility] HEMATOLOGY Platelet 206 K/CMM 133 - 450 05/26/2016 [facility] HEMATOLOGY MPV 8.9 fL 7.4 - 10.4 05/26/2016 [facility] HEMATOLOGY RBC 4.87 M/CMM 4.20 - 5.40 05/26/2016 [facility] HEMATOLOGY WBC 9.1 K/CMM 3.7 - 10.4 05/26/2016 [facility] HEMATOLOGY Monocytes # 0.7 K/CMM 0.0 - 0.8 05/26/2016 [facility] HEMATOLOGY Eosinophils # 0.2 K/CMM 0.0 - 0.5 05/26/2016 [facility] HEMATOLOGY Lymphocytes # 2.6 K/CMM 1.0 - 5.5 05/26/2016 [facility] HEMATOLOGY Segs 60.7 % 45.0 - 75.0 05/26/2016 [facility] Lymphocytes 28.8 % 20.0 - 40.0 05/26/2016 [facility] HEMATOLOGY Eosinophils 2.6 % 0.0 - 4.0 05/26/2016 [facility] Segs-Bands # 5.5 K/CMM 1.5 - 8.1 05/26/2016 [facility] HEMATOLOGY Monocytes 7.4 % 2.0 - 12.0 05/26/2016 [facility] HEMATOLOGY Basophils 0.5 % 0.0 - 1.0 05/26/2016 [facility] URINE AND STOOL UA Urobilinogen <=1.0 mg/dL 0.1 - 1.0 05/26/2016 [facility] URINE AND STOOL UA RBC 1 /HPF 0 - 2 05/26/2016 [facility] URINE AND STOOL UA Mucus Few /LPF None Seen /LPF 05/26/2016 [facility] URINE AND STOOL UA Blood Negative (05/26/16 2:53 AM) Negative 05/26/2016 [facility] URINE AND STOOL UA Sq Epi Occasional /LPF Few /LPF 05/26/2016 [facility] URINE AND STOOL UA Leuk Est Trace *ABN* (05/26/16 2:53 AM) Negative 05/26/2016 [facility] URINE AND STOOL UA Nitrite Negative (05/26/16 2:53 AM) Negative 05/26/2016 [facility] URINE AND STOOL UA Protein Negative mg/dL Negative mg/dL 05/26/2016 [facility] URINE AND STOOL UA Ketones Negative mg/dL Negative mg/dL 05/26/2016 [facility] URINE AND STOOL UA Bili Negative *NA* (05/26/16 2:53 AM) Negative 05/26/2016 [facility] URINE AND STOOL UA Glucose Negative mg/dL Negative mg/dL 05/26/2016 [facility] URINE AND STOOL UA WBC 2 /HPF 0 - 5 05/26/2016 [facility] URINE AND STOOL UA pH 5.0 5.0 - 8.0 05/26/2016 [facility] URINE AND STOOL UA Spec Grav 1.021 <=1.030 05/26/2016 [facility] URINE AND STOOL UA Turbidity Clear (05/26/16 2:53 AM) Clear 05/26/2016 [facility] URINE AND STOOL UA Color Yellow *NA* (05/26/16 2:53 AM) Yellow 05/26/2016 [facility] URINE AND STOOL UA Turbidity Clear (05/25/16 9:13 PM) Clear 05/26/2016 [facility] URINE AND STOOL UA Nitrite Negative (05/25/16 9:13 PM) Negative 05/26/2016 [facility] URINE AND STOOL UA Bili Negative *NA* (05/25/16 9:13 PM) Negative 05/26/2016 [facility] URINE AND STOOL UA Blood Negative (05/25/16 9:13 PM) Negative 05/26/2016 [facility] URINE AND STOOL UA RBC null 0 - 2 05/26/2016 [facility] URINE AND STOOL UA Leuk Est Negative (05/25/16 9:13 PM) Negative 05/26/2016 [facility] URINE AND STOOL UA WBC 1 /HPF 0 - 5 05/26/2016 [facility] URINE AND STOOL UA Sq Epi Occasional /LPF Few /LPF 05/26/2016 [facility] URINE AND STOOL UA Bacteria Occasional /HPF None Seen /HPF 05/26/2016 [facility] URINE AND STOOL UA Urobilinogen <=1.0 mg/dL 0.1 - 1.0 05/26/2016 [facility] URINE AND STOOL UA Color Ltyellow 05/26/2016 [facility] URINE AND STOOL UA Spec Grav 1.017 <=1.030 05/26/2016 [facility] URINE AND STOOL UA Protein Negative mg/dL Negative mg/dL 05/26/2016 [facility] URINE AND STOOL UA Glucose Negative mg/dL Negative mg/dL 05/26/2016 [facility] URINE AND STOOL UA pH 6.0 5.0 - 8.0 05/26/2016 [facility] URINE AND STOOL UA Ketones Negative mg/dL Negative mg/dL 05/26/2016 [facility] CARDIAC ENZYMES CK MB 0.5 ng/mL 0.5 - 3.6 05/26/2016 [facility] CARDIAC ENZYMES Total CK 70 unit/L 12 - 191 05/26/2016 [facility] CARDIAC ENZYMES BNP 20 pg/mL <=100 pg/mL 05/26/2016 [facility] CARDIAC ENZYMES Troponin-I null 0.00 - 0.40 05/26/2016 [facility] CARDIAC ENZYMES CK MB Index 0.7 0.0 - 2.5 05/26/2016 [facility] ELECTROLYTES Chloride Lvl 103 meq/L 95 - 109 05/26/2016 [facility] ELECTROLYTES CO2 31 meq/L 24 - 32 05/26/2016 [facility] Total Protein 7.7 g/dL 6.4 - 8.4 05/26/2016 [facility] ELECTROLYTES Calcium Lvl 8.6 mg/dL 8.5 - 10.5 05/26/2016 [facility] ELECTROLYTES AST 13 unit/L 0 - 37 05/26/2016 [facility] ELECTROLYTES ALT 13 unit/L 0 - 65 05/26/2016 [facility] ELECTROLYTES Potassium Lvl 3.6 meq/L 3.5 - 5.1 05/26/2016 [facility] ELECTROLYTES Alk Phos 103 unit/L 39 - 136 05/26/2016 [facility] Albumin Lvl 3.8 g/dL 3.5 - 5.0 05/26/2016 [facility] eGFR 78 mL/min/1.73m2 05/26/2016 Result Comment: The eGFR is calculated using the CKD-EPI formula. In most young, healthy individuals the eGFR will be >90 mL/min/1.73m2. The eGFR declines with age. An eGFR of 60-89 may be normal in some populations, particularly the elderly, for whom the CKD-EPI formula has not been extensively validated. Use of the eGFR is not recommended in the following populations: Individuals with unstable creatinine concentrations, including patients and those with serious co-morbid conditions. Patients with extremes in muscle mass or diet. The data above are obtained from the National Kidney Disease Education Program (NKDEP) which additionally recommends that when the eGFR is used in patients with extremes of body mass index for purposes of drug dosing, the eGFR should be multiplied by the estimated BMI. [facility] ELECTROLYTES A/G Ratio 1.0 0.7 - 1.6 05/26/2016 [facility] ELECTROLYTES B/C Ratio 15 6 - 25 05/26/2016 [facility] ELECTROLYTES Globulin 3.9 g/dL 2.7 - 4.2 05/26/2016 [facility] ELECTROLYTES AGAP 7.6 meq/L 10.0 - 20.0 05/26/2016 [facility] ELECTROLYTES Bili Total 0.4 mg/dL 0.2 - 1.3 05/26/2016 [facility] ELECTROLYTES Glucose Lvl 92 mg/dL 70 - 99 05/26/2016 [facility] ELECTROLYTES Sodium Lvl 138 meq/L 135 - 145 05/26/2016 [facility] ELECTROLYTES Creatinine Lvl 0.94 mg/dL 0.50 - 1.40 05/26/2016 [facility] ELECTROLYTES BUN 14 mg/dL 7 - 22 05/26/2016 [facility] MCHC 32.8 g/dL 32.0 - 36.0 05/26/2016 [facility] RDW 14.2 % 11.5 - 14.5 05/26/2016 [facility] Platelet 214 K/CMM 133 - 450 05/26/2016 [facility] MPV 9.1 fL 7.4 - 10.4 05/26/2016 [facility] MCH 26.7 pg 27.0 - 31.0 05/26/2016 [facility] RBC 5.00 M/CMM 4.20 - 5.40 05/26/2016 [facility] MCV 81.4 fL 80.0 - 98.0 05/26/2016 [facility] Hgb 13.3 g/dL 12.0 - 16.0 05/26/2016 [facility] Hct 40.7 % 36.0 - 48.0 05/26/2016 [facility] WBC 10.1 K/CMM 3.7 - 10.4 05/26/2016 [facility] HEMATOLOGY PT 12.8 s 12.0 - 14.7 05/26/2016 [facility] HEMATOLOGY INR 0.93 0.85 - 1.17 05/26/2016 [facility] PTT 25.3 s 22.9 - 35.8 05/26/2016 [facility] Lymphocytes # 2.9 K/CMM 1.0 - 5.5 05/26/2016 [facility] Basophils 0.7 % 0.0 - 1.0 05/26/2016 [facility] Segs-Bands # 6.3 K/CMM 1.5 - 8.1 05/26/2016 [facility] Monocytes # 0.7 K/CMM 0.0 - 0.8 05/26/2016 [facility] Eosinophils 2.5 % 0.0 - 4.0 05/26/2016 [facility] Monocytes 6.6 % 2.0 - 12.0 05/26/2016 [facility] Lymphocytes 28.3 % 20.0 - 40.0 05/26/2016 [facility] HEMATOLOGY Segs 61.9 % 45.0 - 75.0 05/26/2016 [facility] Basophils # 0.1 K/CMM 0.0 - 0.2 05/26/2016 [facility] Eosinophils # 0.3 K/CMM 0.0 - 0.5 05/26/2016 [facility] Chest 1view DX Chest 1view DX Study: Chest 1view DX Clinical Indication: Dizziness Comparison: Chest x-ray from 03/11/2016 FINDINGS: The cardiac silhouette is normal in size. The lungs are clear and without consolidation or congestion. No pleural effusion or pneumothorax is seen. The osseous structures are unremarkable. IMPRESSION: No acute cardiopulmonary disease. SL: [id number] 05/25/2016 - - Read by: Chuck Ivan MD Dictated Date/time: 05/25/16 20:48 Electronically Signed by: Chuck Ivan MD 05/25/16 20:49 FINAL REPORT [facility] Brain wo contrast CT Brain wo contrast CT EXAM: CT BRAIN WITHOUT CONTRAST DATE: 05/25/2016 6:28 PM CDT INDICATION: Altered level of consciousness left sided weakness. Slurred speech. COMPARISON: CT head of 03/11/2016. TECHNIQUE: Routine axial CT images of the brain were obtained. IV contrast: None. DLP: mGy-cm FINDINGS: Non-contrast images of the head demonstrate no edema, hemorrhage, mass lesion or other acute intracranial abnormality. 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 Galindo-white matter distinction is preserved. The ventricles are normal. The basal cisterns and sulci are normal in size. Mild chronic inflammatory change of the paranasal sinus. Partial opacification of the mastoid air cells. IMPRESSION: 1. No definite acute infarct or intracranial hemorrhage detected. If there is further concern for intracranial pathology or acute stroke, MRI of the brain may be performed for complete assessment. SL: [id number] 05/25/2016 - - Read by: Jose Alberto Green MD Dictated Date/time: 05/25/16 19:11 Electronically Signed by: Jose Alberto Green MD 05/25/16 19:13 FINAL REPORT [facility] CHEM PANEL Bili Indirect 0.4 mg/dL 0.0 - 1.0 03/13/2016 [facility] CHEM PANEL Bili Total 0.5 mg/dL 0.2 - 1.3 03/13/2016 [facility] CHEM PANEL Bili Direct 0.1 mg/dL 0.0 - 0.3 03/13/2016 [facility] CHEM PANEL Total Protein 6.0 g/dL 6.4 - 8.4 03/13/2016 [facility] CHEM PANEL Albumin Lvl 2.8 g/dL 3.5 - 5.0 03/13/2016 [facility] CHEM PANEL Alk Phos 80 unit/L 39 - 136 03/13/2016 [facility] CHEM PANEL ALT 15 unit/L 0 - 65 03/13/2016 [facility] CHEM PANEL AST 17 unit/L 0 - 37 03/13/2016 [facility] CHEM PANEL Globulin 3.2 g/dL 2.0 - 4.0 03/13/2016 [facility] CHEM PANEL A/G Ratio 0.9 0.7 - 1.6 03/13/2016 [facility] LIPIDS VLDL 18 03/13/2016 [facility] LIPIDS Chol 143 mg/dL <=199 mg/dL 03/13/2016 [facility] LIPIDS HDL 46 mg/dL >=61 mg/dL 03/13/2016 [facility] LIPIDS Trig 92 mg/dL <=149 mg/dL 03/13/2016 [facility] LIPIDS LDL (Calculated) 79 mg/dL <=99 mg/dL 03/13/2016 [facility] LIPIDS CHD Risk 3.11 3.90 - 5.80 03/13/2016 [facility] DRUG SCREEN UDS Note See Note (03/12/16 4:37 PM) 03/12/2016 [facility] DRUG SCREEN U Methadone Scr Negative *NA* (03/12/16 4:37 PM) Negative 03/12/2016 [facility] DRUG SCREEN U Propoxyph Scr Negative *NA* (03/12/16 4:37 PM) Negative 03/12/2016 [facility] DRUG SCREEN U Phencyc Scr Negative *NA* (03/12/16 4:37 PM) Negative 03/12/2016 [facility] DRUG SCREEN U Benzodia Scr Negative *NA* (03/12/16 4:37 PM) Negative 03/12/2016 [facility] DRUG SCREEN U Cocaine Scr Negative *NA* (03/12/16 4:37 PM) Negative 03/12/2016 [facility] DRUG SCREEN U Opiate Scr Positive *ABN* (03/12/16 4:37 PM) Negative 03/12/2016 [facility] DRUG SCREEN U Cannab Scr Negative *NA* (03/12/16 4:37 PM) Negative 03/12/2016 [facility] DRUG SCREEN U Amph Scr Positive *ABN* (03/12/16 4:37 PM) Negative 03/12/2016 [facility] DRUG SCREEN U Adele Scr Negative *NA* (03/12/16 4:37 PM) Negative 03/12/2016 [facility] HEMATOLOGY Sed Rate 8 mm/h 0 - 20 03/12/2016 [facility] CARDIAC ENZYMES CK MB Index 0.4 0.0 - 2.5 03/12/2016 [facility] CARDIAC ENZYMES CK MB 0.9 ng/mL 0.5 - 3.6 03/12/2016 [facility] CARDIAC ENZYMES Troponin-T null 0.000 - 0.100 03/12/2016 [facility] CARDIAC ENZYMES Troponin-I null 0.00 - 0.40 03/12/2016 [facility] CARDIAC ENZYMES Total CK 212 unit/L 12 - 191 03/12/2016 Result Comment: Specimen Grossly Hemolyzed. [facility] CARDIAC ENZYMES CK MB Index 0.9 0.0 - 2.5 03/12/2016 [facility] CARDIAC ENZYMES CK MB 0.8 ng/mL 0.5 - 3.6 03/12/2016 [facility] CARDIAC ENZYMES Troponin-T null 0.000 - 0.100 03/12/2016 [facility] CARDIAC ENZYMES Troponin-I null 0.00 - 0.40 03/12/2016 [facility] CARDIAC ENZYMES Total CK 89 unit/L 12 - 191 03/12/2016 [facility] CHEM PANEL Magnesium Lvl 2.0 mg/dL 1.8 - 2.4 03/12/2016 [facility] IMMUNOLOGY C-REACTIVE PROTEIN 3.5 mg/L <=2.9 mg/L 03/12/2016 [facility] URINE AND STOOL UA Blood Negative (03/11/16 10:13 PM) Negative 03/12/2016 [facility] URINE AND STOOL UA Urobilinogen 1.0 EU/dL 0.1 - 1.0 03/12/2016 [facility] URINE AND STOOL UA Bili Negative *NA* (03/11/16 10:13 PM) Negative 03/12/2016 [facility] URINE AND STOOL UA Glucose Negative (03/11/16 10:13 PM) Negative 03/12/2016 [facility] URINE AND STOOL UA Ketones Trace *ABN* (03/11/16 10:13 PM) Negative 03/12/2016 [facility] URINE AND STOOL UA Protein Negative (03/11/16 10:13 PM) Negative 03/12/2016 [facility] URINE AND STOOL UA pH 5.5 5.0 - 8.0 03/12/2016 [facility] URINE AND STOOL UA Turbidity Clear (03/11/16 10:13 PM) Clear 03/12/2016 [facility] URINE AND STOOL UA Spec Grav 1.015 <=1.030 03/12/2016 [facility] URINE AND STOOL UA Color Yellow *NA* (03/11/16 10:13 PM) Yellow 03/12/2016 [facility] URINE AND STOOL UA Leuk Est Negative (03/11/16 10:13 PM) Negative 03/12/2016 [facility] URINE AND STOOL UA Nitrite Positive *ABN* (03/11/16 10:13 PM) Negative 03/12/2016 [facility] URINE AND STOOL UA WBC 0-2 /HPF None Seen /HPF 03/12/2016 [facility] URINE AND STOOL UA Sq Epi Few /LPF Few /LPF 03/12/2016 [facility] URINE AND STOOL UA Mucus Few /LPF None Seen /LPF 03/12/2016 [facility] URINE AND STOOL UA Bacteria Few /HPF None Seen /HPF 03/12/2016 [facility] URINE AND STOOL UA RBC None Seen (03/11/16 10:13 PM) 0 - 2 03/12/2016 [facility] CHEM PANEL eGFR 58 mL/min/1.73m2 03/12/2016 Result Comment: The eGFR is calculated using the CKD-EPI formula. In most young, healthy individuals the eGFR will be >90 mL/min/1.73m2. The eGFR declines with age. An eGFR of 60-89 may be normal in some populations, particularly the elderly, for whom the CKD-EPI formula has not been extensively validated. Use of the eGFR is not recommended in the following populations: Individuals with unstable creatinine concentrations, including patients and those with serious co-morbid conditions. Patients with extremes in muscle mass or diet. The data above are obtained from the National Kidney Disease Education Program (NKDEP) which additionally recommends that when the eGFR is used in patients with extremes of body mass index for purposes of drug dosing, the eGFR should be multiplied by the estimated BMI. [facility] CHEM PANEL POC Creatinine 1.2 mg/dL 0.5 - 1.4 03/12/2016 [facility] CARDIAC ENZYMES CK MB Index 0.6 0.0 - 2.5 03/12/2016 [facility] CARDIAC ENZYMES Troponin-I null 0.00 - 0.40 03/12/2016 [facility] CARDIAC ENZYMES CK MB 0.8 ng/mL 0.5 - 3.6 03/12/2016 [facility] CARDIAC ENZYMES Total CK 132 unit/L 12 - 191 03/12/2016 [facility] CHEM PANEL eGFR 61 mL/min/1.73m2 03/12/2016 Result Comment: The eGFR is calculated using the CKD-EPI formula. In most young, healthy individuals the eGFR will be >90 mL/min/1.73m2. The eGFR declines with age. An eGFR of 60-89 may be normal in some populations, particularly the elderly, for whom the CKD-EPI formula has not been extensively validated. Use of the eGFR is not recommended in the following populations: Individuals with unstable creatinine concentrations, including patients and those with serious co-morbid conditions. Patients with extremes in muscle mass or diet. The data above are obtained from the National Kidney Disease Education Program (NKDEP) which additionally recommends that when the eGFR is used in patients with extremes of body mass index for purposes of drug dosing, the eGFR should be multiplied by the estimated BMI. [facility] CHEM PANEL Chloride Lvl 105 meq/L 95 - 109 03/12/2016 [facility] CHEM PANEL Potassium Lvl 3.9 meq/L 3.5 - 5.1 03/12/2016 [facility] CHEM PANEL CO2 26 meq/L 24 - 32 03/12/2016 [facility] CHEM PANEL Calcium Lvl 9.0 mg/dL 8.5 - 10.5 03/12/2016 [facility] CHEM PANEL BUN 10 mg/dL 7 - 22 03/12/2016 [facility] CHEM PANEL Glucose Lvl 99 mg/dL 70 - 99 03/12/2016 [facility] CHEM PANEL AGAP 13.9 meq/L 10.0 - 20.0 03/12/2016 [facility] CHEM PANEL Creatinine Lvl 1.15 mg/dL 0.50 - 1.40 03/12/2016 [facility] CHEM PANEL Sodium Lvl 141 meq/L 135 - 145 03/12/2016 [facility] HEMATOLOGY Segs 63.6 % 45.0 - 75.0 03/12/2016 [facility] HEMATOLOGY Lymphocytes # 3.4 K/CMM 1.0 - 5.5 03/12/2016 [facility] HEMATOLOGY Monocytes # 1.0 K/CMM 0.0 - 0.8 03/12/2016 [facility] HEMATOLOGY Basophils # 0.1 K/CMM 0.0 - 0.2 03/12/2016 [facility] HEMATOLOGY Eosinophils # 0.2 K/CMM 0.0 - 0.5 03/12/2016 [facility] HEMATOLOGY Lymphocytes 26.1 % 20.0 - 40.0 03/12/2016 [facility] HEMATOLOGY Monocytes 8.0 % 2.0 - 12.0 03/12/2016 [facility] HEMATOLOGY Eosinophils 1.6 % 0.0 - 4.0 03/12/2016 [facility] HEMATOLOGY Basophils 0.7 % 0.0 - 1.0 03/12/2016 [facility] HEMATOLOGY Segs-Bands # 8.3 K/CMM 1.5 - 8.1 03/12/2016 [facility] HEMATOLOGY PTT 24.4 s 22.9 - 35.8 03/12/2016 [facility] HEMATOLOGY PT 13.5 s 12.0 - 14.7 03/12/2016 [facility] HEMATOLOGY INR 1.00 0.85 - 1.17 03/12/2016 [facility] HEMATOLOGY MCV 83.1 fL 80.0 - 98.0 03/12/2016 [facility] HEMATOLOGY Hct 41.6 % 36.0 - 48.0 03/12/2016 [facility] HEMATOLOGY WBC 13.1 K/CMM 3.7 - 10.4 03/12/2016 [facility] HEMATOLOGY Hgb 13.5 g/dL 12.0 - 16.0 03/12/2016 [facility] HEMATOLOGY RBC 5.01 M/CMM 4.20 - 5.40 03/12/2016 [facility] HEMATOLOGY RDW 14.8 % 11.5 - 14.5 03/12/2016 [facility] HEMATOLOGY MCHC 32.4 g/dL 32.0 - 36.0 03/12/2016 [facility] HEMATOLOGY MCH 26.9 pg 27.0 - 31.0 03/12/2016 [facility] HEMATOLOGY Platelet 232 K/CMM 133 - 450 03/12/2016 [facility] HEMATOLOGY MPV 8.9 fL 7.4 - 10.4 03/12/2016 [facility] Chest 1view DX Chest 1view DX EXAM: XR CHEST 1 VIEW DATE: 03/11/2016 7:36 PM CDT INDICATION: Altered level of consciousness COMPARISON: November 01, 2011 TECHNIQUE: AP chest FINDINGS: Heart size is within normal limits. The lungs are hypoinflated with vascular crowding and minimal bibasilar subsegmental atelectasis. There is no focal consolidation within the lungs. No evidence of pleural effusion or pneumothorax. 3 surgical clips overlie the left upper quadrant. Degenerative changes of the spine. IMPRESSION: No acute radiographic abnormality of the chest. 03/11/2016 - - This report was dictated by a Merchandising Execution Associate/Fellow. I have personally reviewed the images as well as the Resident's interpretation and agree with the findings. Read by: Sylvester Lunsford MD Resident: Sylvester Lunsford MD Dictated Date/time: 03/11/16 21:06 Electronically Signed by: Darin Salguero MD 03/12/16 00:27 FINAL REPORT [facility] Brain/Neck Stroke perfusion CTA Brain/Neck Stroke perfusion CTA EXAM: CTA BRAIN EXAM: CTA NECK EXAM: CT PERFUSION BRAIN DATE: 03/11/2016 at 7:59 PM CDT INDICATION: Altered level of consciousness COMPARISON: CT brain 03/11/2016 at 7:49 PM. TECHNIQUE: - Dynamic CT perfusion images on a limited area of the brain parenchyma are performed during bolus injection of iodinated contrast material. Color maps of relative cerebral blood flow, relative cerebral blood volume, time to peak, and mean transit time are created on an independent workstation and are submitted along with the source image data. -Rapid acquisition spiral CT images of the brain and neck were obtained between the aortic arch and the cranial vertex during intravenous infusion of iodinated contrast for the purposes of CT angiography. 3-D CT angiographic images are created using MIP technique at the acquisition workstation. The source images are also presented for interpretation. IV contrast: 100 cc of Visipaque 320. DLP: 3479 mGy-cm FINDINGS: NECK CTA: Aortic arch: Atherosclerotic calcification is noted within the wall of the aortic arch without stenosis. The great vessels originate from the aortic arch in the standard configuration. No origin stenosis is identified. The vertebral artery origins are patent bilaterally. Carotid arteries: The cervical common carotid arteries and cervical internal carotid arteries have a normal course, caliber, and contour. There is no carotid bifurcation stenosis. There is no evidence of vascular injury. Vertebral arteries: The vertebral arteries have a normal course, caliber and contour. The soft tissues of the neck and other incidental structures are normal. BRAIN CTA: Anterior circulation: Normal appearance and a standard branching pattern. No branch occlusion, vascular injury, arteritis, vascular malformation or aneurysm is identified. Posterior circulation: Normal appearance and a standard branching pattern. No branch occlusion, vascular injury, arteritis, vascular malformation or aneurysm is identified. The deep cerebral veins and major venous sinuses are normal. The brain parenchyma and other incidental structures are unremarkable. CT PERFUSION: There is no regional abnormality in cerebral blood flow, cerebral blood volume, or transit time in the imaged areas of the brain to suggest active oligemia or infarction. RAPID infusion imaging demonstrates CBF <30% volume: <1 cc. Perfusion Tmax> 6.0s volume: 3.9 cc artifactual within the bilateral frontal regions. Mismatch volume: 3.9 cc. Mismatch ratio: infinite. IMPRESSION: 1. Normal CTA of the head. 2. Normal CTA of the neck. 3. Normal CT perfusion. (All qualitative and quantitative assessments of carotid bifurcation and proximal internal carotid artery stenosis are made referencing the distal internal carotid artery {NASCET criteria}.) Resident preliminary report by Dr. Sylvester Lunsford: Perfusion: negative CTA: negative. No acute occlusion, aneurysm, vascular malformation or dissection. 03/11/2016 - - Read by: Fan Lei MD Dictated Date/time: 03/12/16 00:33 Electronically Signed by: Fan Lei MD 03/12/16 00:38 FINAL REPORT [facility] Brain Stroke wo contrast CT Brain Stroke wo contrast CT CT HEAD WITHOUT CONTRAST DATE: 03/11/2016 at 7:49 PM COMPARISON: 12/25/2014, studies dating back to 06/06/2008. HISTORY: Altered level of consciousness. TECHNIQUE: Contiguous axial images of the brain were obtained without intravenous contrast administration. Sagittal and coronal reformatted images were also provided. DLP: 787 mGy-cm. FINDINGS: Encephalomalacia is again noted within the right occipital lobe consistent with remote ORNAMENTAL METAL WORKER APPRENTICE territory infarct. There are no acute hemorrhages or acute infarcts. The zuniga-white interfaces are otherwise well defined. There are no mass lesions or extra axial collections. There are no acute bony abnormalities. The calvarium is intact. IMPRESSION: 1. No acute intracranial abnormality. 2. 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 Resident preliminary report by Dr. Sylvester Lunsford: Neg acute Small area of encephalomalacia in the R occipital lobe unchanged from CT on 03/02/2010. 03/11/2016 - - Read by: Fan Lei MD Dictated Date/time: 03/12/16 00:30 Electronically Signed by: Fan Lei MD 03/12/16 00:33 FINAL REPORT [facility] Spine lumbar 2 or 3 views DX Spine lumbar 2 or 3 views DX Lumbosacral spine, 3 view: Exam reason: See Clinic indication backache AP, lateral and coned lateral views of the lumbar spine were obtained. Marginal spurring is noted at the visualized lower thoracic and lumbar vertebral bodies. Degenerative arthropathy is noted at the lower lumbar apophyseal joints. Lumbar vertebral body heights and interspaces are otherwise well-maintained. There is no acute fracture, dislocation or spondylolisthesis noted. SL:12 12/25/2014 - - Read by: Gregorio Ortega MD Dictated Date/time: 12/25/14 22:37 Electronically Signed by: Gregorio Ortega MD 12/25/14 22:38 FINAL REPORT [facility] Spine thoracic 3 views DX Spine thoracic 3 views DX Thoracic spine, 3 view: Exam reason: See Clinic IndicationPain, Thoracic region AP, lateral and swimmer's view were obtained. Minimal thoracic curvature convex to the right is noted. Degenerative disc disease is noted at the thoracic intervertebral disc spaces. Marginal spurring is noted at the thoracic vertebrae. Mild to moderate thoracic spondylosis is noted. Thoracic paraspinous stripes are normal. No acute fracture, dislocation or spondylolisthesis is noted. SL:12/25/2014 - - Read by: Gregorio Ortega MD Dictated Date/time: 12/25/14 22:38 Electronically Signed by: Gregorio Ortega MD 12/25/14 22:40 FINAL REPORT [facility] Shoulder series DX Shoulder series DX Left shoulder, 3 views: Exam reason: Trauma, pain. Degenerative changes are noted at the acromioclavicular joint. There is no acute fracture or dislocation noted. SL:12/25/2014 - - Read by: Gregorio Ortega MD Dictated Date/time: 12/25/14 22:39 Electronically Signed by: Gregorio Ortega MD 12/25/14 22:39 FINAL REPORT [facility] Brain wo contrast CT Brain wo contrast CT CT scan of the head without contrast: Exam reason: Headache with Dizziness and Giddiness See Clinic Indication Multiple computerized axial tomograms of the head were obtained without contrast. There is no acute cortical infarction, mass lesion or hemorrhage noted. There is no mass-effect or midline shift demonstrated. The ventricles are normal in size, shape and position. The base of skull and bony calvarium are intact. IMPRESSION: No acute intracranial abnormality noted. SL:12/25/2014 - - Read by: Gregorio Ortega MD Dictated Date/time: 12/25/14 22:04 Electronically Signed by: Gregorio Ortega MD 12/25/14 22:05 FINAL REPORT [facility] Spine cervical wo contrast CT Spine cervical wo contrast CT CT scan of the cervical spine without contrast: Exam reason: Spinal Trauma See Clinic IndicationPain, Cervical region Multiple computerized axial tomograms of the cervical spine were obtained without contrast. Sagittal and coronal reformation images were obtained. 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 There is no adjacent soft tissue swelling noted. The lateral masses of C1 and C2 are well aligned. The dens is intact. Narrowing of the interspaces at C4-C5, C5-C6, C6-C7 and C7-T1 are noted consistent with degenerative disc disease. The cervical vertebral body heights and interspaces are otherwise maintained. Degenerative arthropathy is noted at the atlantoaxial joint. Detail within the cervical spinal canal is limited by beam hardening artifact. Cervical curvature convex to the left is noted. Degenerative changes are noted at the cervical apophyseal joints. Reversal of the usual cervical lordosis is noted. Mild to moderate cervical spondylosis is noted. IMPRESSION: 1. There is no acute fracture or dislocation noted at the cervical spine. 2. 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 SL:12 12/25/2014 - - Read by: Gregorio Ortega MD Dictated Date/time: 12/25/14 22:05 Electronically Signed by: Gregorio Ortega MD 12/25/14 22:10 FINAL REPORT [facility] CHEM PANEL Lipase Lvl 75 unit/L 73 - 393 04/05/2014 [facility] CHEM PANEL Bili Indirect 0.4 mg/dL 0.0 - 1.0 04/05/2014 [facility] CHEM PANEL Globulin 4.0 g/dL 2.0 - 4.0 04/05/2014 [facility] CHEM PANEL A/G Ratio 0.8 0.7 - 1.6 04/05/2014 [facility] CHEM PANEL AST 18 unit/L 0 - 37 04/05/2014 [facility] CHEM PANEL Alk Phos 96 unit/L 39 - 136 04/05/2014 [facility] CHEM PANEL Bili Total 0.5 mg/dL 0.2 - 1.3 04/05/2014 [facility] CHEM PANEL Bili Direct 0.1 mg/dL 0.0 - 0.3 04/05/2014 [facility] CHEM PANEL Total Protein 7.3 g/dL 6.4 - 8.4 04/05/2014 [facility] CHEM PANEL Albumin Lvl 3.3 g/dL 3.5 - 5.0 04/05/2014 [facility] CHEM PANEL ALT 17 unit/L 0 - 65 04/05/2014 [facility] ELECTROLYTES AGAP 7.8 meq/L 10.0 - 20.0 04/05/2014 [facility] ELECTROLYTES eGFR 95 mL/min/1.73m2 04/05/2014 1Result Comment: The eGFR is calculated using the CKD-EPI formula. In most young, healthy individuals the eGFR will be >90 mL/min/1.73m2. The eGFR declines with age. An eGFR of 60-89 may be normal in some populations, particularly the elderly, for whom the CKD-EPI formula has not been extensively validated. Use of the eGFR is not recommended in the following populations: Individuals with unstable creatinine concentrations, including patients and those with serious co-morbid conditions. Patients with extremes in muscle mass or diet. The data above are obtained from the National Kidney Disease Education Program (NKDEP) which additionally recommends that when the eGFR is used in patients with extremes of body mass index for purposes of drug dosing, the eGFR should be multiplied by the estimated BMI. [facility] ELECTROLYTES Calcium Lvl 9.1 mg/dL 8.5 - 10.5 04/05/2014 [facility] ELECTROLYTES Sodium Lvl 139 meq/L 135 - 145 04/05/2014 [facility] ELECTROLYTES Creatinine Lvl 0.8 mg/dL 0.5 - 1.4 04/05/2014 [facility] ELECTROLYTES Potassium Lvl 3.8 meq/L 3.5 - 5.1 04/05/2014 [facility] ELECTROLYTES Chloride Lvl 106 meq/L 95 - 109 04/05/2014 [facility] ELECTROLYTES CO2 29 meq/L 24 - 32 04/05/2014 [facility] ELECTROLYTES Glucose Lvl 101 mg/dL 70 - 99 04/05/2014 2Interpretive Data: Adult reference range values reflect the clinical guidelines of the [place] [employer]. [facility] ELECTROLYTES BUN 10 mg/dL 7 - 22 04/05/2014 [facility] HEMATOLOGY Segs-Bands # 6.5 K/CMM 1.5 - 8.1 04/05/2014 [facility] HEMATOLOGY Lymphocytes # 2.5 K/CMM 1.0 - 5.5 04/05/2014 [facility] HEMATOLOGY Eosinophils # 0.4 K/CMM 0.0 - 0.5 04/05/2014 [facility] HEMATOLOGY Basophils # 0.0 K/CMM 0.0 - 0.2 04/05/2014 [facility] HEMATOLOGY Lymphocytes 24.9 % 20.0 - 40.0 04/05/2014 [facility] HEMATOLOGY Monocytes 6.3 % 2.0 - 12.0 04/05/2014 [facility] HEMATOLOGY Segs 64.3 % 45.0 - 75.0 04/05/2014 [facility] HEMATOLOGY Monocytes # 0.6 K/CMM 0.0 - 0.8 04/05/2014 [facility] HEMATOLOGY Eosinophils 4.3 % 0.0 - 4.0 04/05/2014 [facility] HEMATOLOGY Basophils 0.2 % 0.0 - 1.0 04/05/2014 [facility] HEMATOLOGY MPV 8.5 fL 7.4 - 10.4 04/05/2014 [facility] HEMATOLOGY Platelet 224 K/CMM 133 - 450 04/05/2014 [facility] HEMATOLOGY RDW 13.6 % 11.5 - 14.5 04/05/2014 [facility] HEMATOLOGY WBC 10.0 K/CMM 3.7 - 10.4 04/05/2014 [facility] HEMATOLOGY Hct 39.6 % 36.0 - 48.0 04/05/2014 [facility] HEMATOLOGY Hgb 13.8 g/dL 12.0 - 16.0 04/05/2014 [facility] HEMATOLOGY RBC 4.95 M/CMM 4.20 - 5.40 04/05/2014 [facility] HEMATOLOGY MCV 80.1 fL 81.0 - 99.0 04/05/2014 [facility] HEMATOLOGY MCHC 34.8 g/dL 32.0 - 36.0 04/05/2014 [facility] HEMATOLOGY MCH 27.9 pg 27.0 - 31.0 04/05/2014 [facility] Vital Signs Vital Sign Value Date Comments Source Systolic (mm Hg) 116 08/04/2016 [facility] Diastolic (mm Hg) 99 08/04/2016 [facility] Heart Rate 70 08/04/2016 [facility] Temperature Oral (F) 97 F 08/04/2016 [facility] Respitory Rate 18 08/04/2016 [facility] Respitory Rate 16 08/04/2016 [facility] Systolic (mm Hg) 115 08/04/2016 [facility] Diastolic (mm Hg) 64 08/04/2016 [facility] Temperature Oral (F) 96 F 08/04/2016 [facility] Heart Rate 64 08/04/2016 [facility] Weight 123.636 08/03/2016 [facility] Temperature Oral (F) 97.7 F 08/03/2016 [facility] [facility] Heart Rate 62 08/03/2016 [facility] Respitory Rate 18 08/03/2016 [facility] Height 162.56 cm 08/03/2016 [facility] BMI Calculated 46.79 08/03/2016 [facility] Systolic (mm Hg) 195 08/03/2016 [facility] Diastolic (mm Hg) 103 08/03/2016 [facility] Systolic (mm Hg) 110 05/27/2016 [facility] Diastolic (mm Hg) 67 05/27/2016 [facility] Heart Rate 56 05/27/2016 [facility] Temperature Oral (F) 98.1 F 05/27/2016 [facility] Temperature Oral (F) 98.2 F 05/27/2016 [facility] Heart Rate 58 05/27/2016 [facility] Respitory Rate 18 05/27/2016 [facility] Systolic (mm Hg) 119 05/27/2016 [facility] Diastolic (mm Hg) 72 05/27/2016 [facility] Systolic (mm Hg) 119 05/27/2016 [facility] Diastolic (mm Hg) 59 05/27/2016 [facility] Temperature Oral (F) 98.0 F 05/27/2016 [facility] Heart Rate 64 05/27/2016 [facility] Respitory Rate 18 05/27/2016 [facility] Respitory Rate 18 05/27/2016 [facility] Height 162.56 cm 05/26/2016 [facility] Weight 129.148 05/26/2016 [facility] BMI Calculated 48.87 05/26/2016 [facility] BMI Calculated 48.85 05/25/2016 [facility] Weight 129.091 05/25/2016 [facility] Height 162.56 cm 05/25/2016 [facility] Temperature Oral (F) 96.6 F 03/13/2016 [facility] Systolic (mm Hg) 139 03/13/2016 [facility] Diastolic (mm Hg) 66 03/13/2016 [facility] Respitory Rate 18 03/13/2016 [facility] Weight 129.091 03/13/2016 [facility] Respitory Rate 18 03/13/2016 [facility] Systolic (mm Hg) 133 03/13/2016 [facility] Diastolic (mm Hg) 78 03/13/2016 [facility] Temperature Oral (F) 96.3 F 03/13/2016 [facility] Heart Rate 64 03/13/2016 [facility] Systolic (mm Hg) 104 03/13/2016 [facility] Diastolic (mm Hg) 58 03/13/2016 [facility] Temperature Oral (F) 97.9 F 03/13/2016 [facility] Heart Rate 68 03/13/2016 [facility] Respitory Rate 18 03/13/2016 [facility] Heart Rate 65 03/13/2016 [facility] BMI Calculated 47.13 03/12/2016 [facility] Weight 124.545 03/12/2016 [facility] Height 162.56 cm 03/12/2016 [facility] Weight 100 03/12/2016 [facility] Weight 109.091 06/29/2014 [facility] Height 172.72 cm 06/29/2014 [facility] BMI Calculated 36.57 06/29/2014 [facility] Diastolic (mm Hg) 82 06/29/2014 [facility] Systolic (mm Hg) 134 06/29/2014 [facility] Temperature Oral (F) 98.5 F 06/29/2014 [facility] Respitory Rate 18 06/29/2014 [facility] Heart Rate 70 06/29/2014 [facility] Diastolic (mm Hg) 79 04/05/2014 [facility] Temperature Oral (F) 97.5 F 04/05/2014 [facility] Heart Rate 60 04/05/2014 [facility] Respitory Rate 18 04/05/2014 [facility] Center Systolic (mm Hg) 140 04/05/2014 [facility] Temperature Oral (F) 97.4 F 04/05/2014 [facility] Heart Rate 61 04/05/2014 [facility] Center Respitory Rate 20 04/05/2014 [facility] Center Systolic (mm Hg) 143 04/05/2014 [facility] Center Diastolic (mm Hg) 79 04/05/2014 [facility] Center Diastolic (mm Hg) 86 04/05/2014 [facility] Systolic (mm Hg) 148 04/05/2014 [facility] Heart Rate 62 04/05/2014 [facility] Temperature Oral (F) 98.8 F 04/05/2014 [facility] Center Respitory Rate 20 04/05/2014 [facility] BMI Calculated 55.04 04/05/2014 [facility] Weight 145.455 04/05/2014 [facility] Height 162.56 cm 04/05/2014 [facility] Encounters Location Location Details Encounter Type Encounter Number Reason For Visit Attending Provider ADM Date DC Date Status Source [facility] Outpatient [id number] 511Mable MARTINEZLorena 11/01/2011 11/01/2011 Active [facility] [id number] Carlos Alberto Luiwanda 04/05/2014 04/05/2014 [facility] [id number] Jose Alberto Christos 06/29/2014 06/30/2014 [facility] OBS Observation Patient [id number] Sb Sorensen 03/12/2016 03/13/2016 [facility] Observation [id number] Elia Pickering Jr 05/25/2016 05/27/2016 [facility] Emergency [id number] Chandrakant Cerda 08/03/2016 08/04/2016 [facility] Procedures Procedure Code Date Perfomer Comments Source hysterectomy [id number] [facility] Gastric bypass [id number] [facility] Cholecystectomy [id number] [facility] Hysterectomy [id number] [facility] Tubal ligation [id number] [facility] hysterectomy [id number] [facility] Cholecystectomy [id number] [facility] Gastric bypass [id number] [place] [facility]ste[facility] [id number] [facility] Tubal ligation [id number] [facility]
--- OUTSIDE RECORDS SUMMARY | 2018-12-09 08:08 | XMS REPORT | CCD ---
Author Author Auto Generated Organization [facility] Address Unknown Phone Unavailable Care Team Providers Care Panama Hat Smearer Name Role Phone AlisonjustineJovon RP Allergies, Adverse Reactions, Alerts Substance Reaction Status Latex Active NKDA Canceled penicillins Active theophylline Active Tylenol Active Problem List Condition Effective Dates Status Back ache Active Bronchitis Active Depression Active
--- OUTSIDE RECORDS SUMMARY | 2018-12-09 08:09 | XMS REPORT | Summary of Care ---
Author Author [facility] Organization [facility] Address Unknown Phone Unavailable Encounter UNIQUE Martinez(CORA) [id number] Date(s): 08/03/16 - 08/03/16 [facility] [address] [employer] provided by [facility] [place] [address]- Discharge Diagnosis: Medication reaction Discharge Disposition: Home or Self Care Attending Physician: Chandrakant Cerda MD Vital Signs 1 2 3 Most recent to oldest [Reference Range]: 162.56 cm (08/03/16 4:40 PM) Height 97 DegF (08/03/16 10:45 PM) 96 DegF *LOW* (08/03/16 7:32 PM) 97.7 DegF (08/03/16 4:40 PM) Temperature Oral [96.4-99.1 DegF] 116/99 mmHg (08/03/16 10:45 PM) 115/64 mmHg (08/03/16 7:32 PM) 195/103 mmHg *HI* (08/03/16 4:40 PM) Blood Pressure [90-140/60-90 mmHg] 18 BRMIN (08/03/16 10:45 PM) 16 BRMIN (08/03/16 7:32 PM) 18 BRMIN (08/03/16 4:40 PM) Respiratory Rate [14-20 BRMIN] 70 bpm (08/03/16 10:45 PM) 64 bpm (08/03/16 7:32 PM) 62 bpm (08/03/16 4:40 PM) Peripheral Pulse Rate [60-100 bpm] 123.636 kg (08/03/16 4:40 PM) Weight 46.79 m2 (08/03/16 4:40 PM) Body Mass Index Problem List Condition Effective Dates Status Health Status Informant Asthma(Confirmed) Resolved Back ache(Confirmed) Active Bronchitis(Confirmed Active ) Chronic back Resolved pain(Confirmed) Chronic knee Resolved instability(Confirme d)1 COPD(Confirmed) Resolved CVA (cerebral Resolved vascular accident)(Confirmed) Depression(Confirmed Active ) Glaucoma(Confirmed) Resolved TIA(Confirmed) Resolved 1pain Allergies, Adverse Reactions, Alerts Substance Reaction Severity Status iodine Active Latex Active penicillins Active Suboxone Active theophylline Active Tylenol1 Active 1Pt only allergic to IV Acetaminophen. clarified with pt Medications Ativan 1 mg, Route: IVP, Drug form: INJ, ONCE, Dosing Weight 123.636, kg, Priority: STA T, Start date: 08/03/16 17:59:00 CDT, Stop date: 08/03/16 17:59:00 CDT Start Date: 08/03/16 Stop Date: 08/03/16 Status: Discontinued Phenergan 25 mg, Route: IVPB, ONCE, Dosing Weight 123.636, kg, Priority: STAT, Start date: 08/03/16 17:44:00 CDT, Stop date: 08/03/16 17:44:00 CDT Start Date: 08/03/16 Stop Date: 08/03/16 Status: Discontinued sodium chloride 0.9% 1000 ml INJ 1,000 mL 1,000 mL, Rate: 125 ml/hr, Infuse over: 8 hr, Route: IV, Dosing Weight 123.636 k g, Total Volume: 1,000, Priority: STAT, Start date: 08/03/16 17:44:00 CDT, Durat ion: 1 doses or times, Stop date: 08/04/16 1:43:00 CDT Start Date: 08/03/16 Stop Date: 08/03/16 Status: Completed Zofran 4 mg, Route: IVP, Drug form: INJ, ONCE, Dosing Weight 123.636, kg, Priority: STA T, Start date: 08/03/16 20:05:00 CDT, Stop date: 08/03/16 20:05:00 CDT Start Date: 08/03/16 Stop Date: 08/03/16 Status: Completed Results ELECTROLYTES Most recent to 1 2 oldest [Reference Range]: Sodium Lvl [135-145 141 mEq/L mEq/L] (08/03/16 6:00 PM) Potassium Lvl 3.3 mEq/L [3.5-5.1 mEq/L] *LOW* (08/03/16 6:00 PM) Chloride Lvl [95-109 102 mEq/L mEq/L] (08/03/16 6:00 PM) CO2 [24-32 mEq/L] 27 mEq/L (08/03/16 6:00 PM) AGAP [10.0-20.0 15.3 mEq/L mEq/L] (08/03/16 6:00 PM) CHEM PANEL Most recent to 1 2 oldest [Reference Range]: Creatinine Lvl 0.76 mg/dL [0.50-1.40 mg/dL] (08/03/16 6:00 PM) eGFR 100 mL/min/1.73m2 1 *NA* (08/03/16 6:00 PM) BUN [7-22 mg/dL] 11 mg/dL (08/03/16 6:00 PM) B/C Ratio [6-25] 14 (08/03/16 6:00 PM) Glucose Lvl [70-99 137 mg/dL mg/dL] *HI* (08/03/16 6:00 PM) Total Protein 7.1 g/dL [6.4-8.4 g/dL] (08/03/16 6:00 PM) Albumin Lvl [3.5-5.0 3.7 g/dL g/dL] (08/03/16 6:00 PM) Globulin [2.7-4.2 3.4 g/dL g/dL] (08/03/16 6:00 PM) A/G Ratio [0.7-1.6] 1.1 (08/03/16 6:00 PM) Calcium Lvl 8.5 mg/dL [8.5-10.5 mg/dL] (08/03/16 6:00 PM) ALT [0-65 unit/L] 11 unit/L (08/03/16 6:00 PM) AST [0-37 unit/L] 16 unit/L (08/03/16 6:00 PM) Alk Phos [39-136 92 unit/L unit/L] (08/03/16 6:00 PM) Bili Total [0.2-1.3 0.6 mg/dL mg/dL] (08/03/16 6:00 PM) 1Result Comment: The eGFR is calculated using [...] from the National Kid[employer] Disease Education Program ( NKDEP) which additionally recommends that when the eGFR is used in patients with extremes of body mass index for purposes of drug dosing, the eGFR should be mul tiplied by the estimated BMI. CARDIAC ENZYMES Most recent to 2 oldest [Reference Range]: Troponin-I <0.02 ng/mL <0.02 ng/mL [0.00-0.40 ng/mL] (08/03/16 10:12 PM) (08/03/16 6:00 PM) HEMATOLOGY Most recent to 1 2 oldest [Reference Range]: WBC [3.7-10.4 K/CMM] 10.6 K/CMM *HI* (08/03/16 6:00 PM) RBC [4.20-5.40 4.82 M/CMM M/CMM] (08/03/16 6:00 PM) Hgb [12.0-16.0 g/dL] 13.2 g/dL (08/03/16 6:00 PM) Hct [36.0-48.0 %] 39.7 % (08/03/16 6:00 PM) MCV [80.0-98.0 fL] 82.4 fL (08/03/16 6:00 PM) MCH [27.0-31.0 pg] 27.4 pg (08/03/16 6:00 PM) MCHC [32.0-36.0 33.2 g/dL g/dL] (08/03/16 6:00 PM) RDW [11.5-14.5 %] 15.2 % *HI* (08/03/16 6:00 PM) Platelet [133-450 224 K/CMM K/CMM] (08/03/16 6:00 PM) MPV [7.4-10.4 fL] 8.2 fL (08/03/16 6:00 PM) Segs [45.0-75.0 %] 44.1 % *LOW* (08/03/16 6:00 PM) Lymphocytes 44.9 % [20.0-40.0 %] *HI* (08/03/16 6:00 PM) Monocytes [2.0-12.0 6.4 % %] (08/03/16 6:00 PM) Eosinophils [0.0-4.0 4.3 % %] *HI* (08/03/16 6:00 PM) Basophils [0.0-1.0 0.3 % %] (08/03/16 6:00 PM) Segs-Bands # 4.7 K/CMM [1.5-8.1 K/CMM] (08/03/16 6:00 PM) Lymphocytes # 4.8 K/CMM [1.0-5.5 K/CMM] (08/03/16 6:00 PM) Monocytes # [0.0-0.8 0.7 K/CMM K/CMM] (08/03/16 6:00 PM) Eosinophils # 0.5 K/CMM [0.0-0.5 K/CMM] (08/03/16 6:00 PM) Immunizations Not Given Vaccine Date Status Refusal Reason pneumococcal 23-valent vaccine 05/26/16 Not Given Patient Refuses Procedures Procedure Date Related Diagnosis Body Site hysterectomy Cholecystectomy Gastric bypass Hysterectomy Tubal ligation Social History Social History Type Response Substance Abuse Use: None. Alcohol Never Smoking Status Never smoker; Exposure to Tobacco Smoke None; Cigarette Smoking Last 365 Days No; Reg Smoking Cessation Counseling No Assessment and Plan No data available for this section
--- OUTSIDE RECORDS SUMMARY | 2018-12-09 08:09 | XMS REPORT | Summary of Care ---
Author Organization Unknown Address Unknown Phone Unavailable Encounter HQ Michelle(CORA) [id number] Date(s): 04/04/14 - 04/05/14 [facility] [address] [address]- [facility] Discharge Diagnosis: Acute gastritis Discharge Disposition: Home Physician Attending: Carlos Alberto Mistry MD Reason for Visit ABD PAIN Vital Signs 1 2 3 Most recent to oldest [Reference Range]: 162.56 cm (04/04/14 7:25 PM) Height 97.5 DegF (04/05/14 6:12 AM) 97.4 DegF (04/05/14 3:25 AM) 98.8 DegF (04/04/14 11:16 PM) Temperature Oral [96.4-99.1 DegF] 140 mmHg (04/05/14 6:12 AM) 143 mmHg *HI* (04/05/14 3:25 AM) 148 mmHg *HI* (04/04/14 11:16 PM) Systolic Blood Pressure [90-140 mmHg] 79 mmHg (04/05/14 6:12 AM) 79 mmHg (04/05/14 3:25 AM) 86 mmHg (04/04/14 11:16 PM) Diastolic Blood Pressure [60-90 mmHg] 18 BRMIN (04/05/14 6:12 AM) 20 BRMIN (04/05/14 3:25 AM) 20 BRMIN (04/04/14 11:16 PM) Respiratory Rate [14-20 BRMIN] 60 bpm (04/05/14 6:12 AM) 61 bpm (04/05/14 3:25 AM) 62 bpm (04/04/14 11:16 PM) Peripheral Pulse Rate [60-100 bpm] 145.455 kg (04/04/14 7:25 PM) Weight 55.04 m2 (04/04/14 7:25 PM) Body Mass Index Problem List Condition Effective Dates Status Health Status Informant Asthma(Confirmed) Resolved Back ache(Confirmed) Active Bronchitis(Confirmed Active ) CVA (cerebral Resolved vascular accident)(Confirmed) Depression(Confirmed Active ) Allergies, Adverse Reactions, Alerts Substance Reaction Severity Status Latex Active penicillins Active theophylline Active Tylenol Active Medications famotidine 20 mg oral tablet 20 mg=1 tab, PO, BID, # 60 tab, 0 Refill(s) Start Date: 04/05/14 Status: Ordered GI cocktail 30 mL, Route: PO, Dosing Weight 145.455, kg, ONCE, STAT, Start date: 04/05/14 4: 32:00, Stop date: 04/05/14 4:32:00 Start Date: 04/05/14 Stop Date: 04/05/14 Status: Completed Results ELECTROLYTES Most recent to 1 oldest [Reference Range]: Sodium Lvl [135-145 139 mEq/L mEq/L] (04/05/14 5:40 AM) Potassium Lvl 3.8 mEq/L [3.5-5.1 mEq/L] (04/05/14 5:40 AM) Chloride Lvl [95-109 106 mEq/L mEq/L] (04/05/14 5:40 AM) CO2 [24-32 mEq/L] 29 mEq/L (04/05/14 5:40 AM) AGAP [10.0-20.0 7.8 mEq/L mEq/L] *LOW* (04/05/14 5:40 AM) CHEM PANEL Most recent to 1 oldest [Reference Range]: Creatinine Lvl 0.8 mg/dL [0.5-1.4 mg/dL] (04/05/14 5:40 AM) eGFR 95 mL/min/1.73m2 1 *NA* (04/05/14 5:40 AM) BUN [7-22 mg/dL] 10 mg/dL (04/05/14 5:40 AM) Glucose Lvl [70-99 101 mg/dL 2 mg/dL] *HI* (04/05/14 5:40 AM) Total Protein 7.3 g/dL [6.4-8.4 g/dL] (04/05/14 5:40 AM) Albumin Lvl [3.5-5.0 3.3 g/dL g/dL] *LOW* (04/05/14 5:40 AM) Globulin [2.0-4.0 4.0 g/dL g/dL] (04/05/14 5:40 AM) A/G Ratio [0.7-1.6] 0.8 (04/05/14 5:40 AM) Calcium Lvl 9.1 mg/dL [8.5-10.5 mg/dL] (04/05/14 5:40 AM) ALT [0-65 unit/L] 17 unit/L (04/05/14 5:40 AM) AST [0-37 unit/L] 18 unit/L (04/05/14 5:40 AM) Alk Phos [39-136 96 unit/L unit/L] (04/05/14 5:40 AM) Bili Total [0.2-1.3 0.5 mg/dL mg/dL] (04/05/14 5:40 AM) Bili Direct [0.0-0.3 0.1 mg/dL mg/dL] (04/05/14 5:40 AM) Bili Indirect 0.4 mg/dL [0.0-1.0 mg/dL] (04/05/14 5:40 AM) Lipase Lvl [73-393 75 unit/L unit/L] (04/05/14 5:40 AM) 1Result Comment: The eGFR is calculated using [...] be mul tiplied by the estimated BMI. 2Interpretive Data: Adult reference range values reflect the clinical guidelines of the [place] [employer]. HEMATOLOGY Most recent to 1 oldest [Reference Range]: WBC [3.7-10.4 K/CMM] 10.0 K/CMM (04/05/14 5:40 AM) RBC [4.20-5.40 4.95 M/CMM M/CMM] (04/05/14 5:40 AM) Hgb [12.0-16.0 g/dL] 13.8 g/dL (04/05/14 5:40 AM) Hct [36.0-48.0 %] 39.6 % (04/05/14 5:40 AM) MCV [81.0-99.0 fL] 80.1 fL *LOW* (04/05/14 5:40 AM) MCH [27.0-31.0 pg] 27.9 pg (04/05/14:40 AM) MCHC [32.0-36.0 34.8 g/dL g/dL] (04/05/14 5:40 AM) RDW [11.5-14.5 %] 13.6 % (04/05/14 5:40 AM) Platelet [133-450 224 K/CMM K/CMM] (04/05/14 5:40 AM) MPV [7.4-10.4 fL] 8.5 fL (04/05/14 5:40 AM) Segs [45.0-75.0 %] 64.3 % (04/05/14 5:40 AM) Lymphocytes 24.9 % [20.0-40.0 %] (04/05/14 5:40 AM) Monocytes [2.0-12.0 6.3 % %] (04/05/14 5:40 AM) Eosinophils [0.0-4.0 4.3 % %] *HI* (04/05/14 5:40 AM) Basophils [0.0-1.0 0.2 % %] (04/05/14 5:40 AM) Segs-Bands # 6.5 K/CMM [1.5-8.1 K/CMM] (04/05/14 5:40 AM) Lymphocytes # 2.5 K/CMM [1.0-5.5 K/CMM] (04/05/14 5:40 AM) Monocytes # [0.0-0.8 0.6 K/CMM K/CMM] (04/05/14 5:40 AM) Eosinophils # 0.4 K/CMM [0.0-0.5 K/CMM] (04/05/14 5:40 AM) Basophils # [0.0-0.2 0.0 K/CMM K/CMM] (04/05/14 5:40 AM) Medications Administered During Your Visit No data available for this section Immunizations No data available for this section Procedures Procedure Type Body Site Date of Procedure Related Diagnosis hysterectomy Gastric bypass
--- OUTSIDE RECORDS SUMMARY | 2018-12-09 08:09 | XMS REPORT | Summary of Care ---
Author Author [facility] Organization [facility] Address Unknown Phone Unavailable Encounter UNIQUE Martinez(CORA) [id number] Date(s): 05/25/16 - 05/27/16 [facility] [address] [place] [address]- [phone] Discharge Disposition: Home or Self Care Attending Physician: Elia Hess MD Admitting Physician: Elia Hess MD Vital Signs 1 2 3 Most recent to oldest [Reference Range]: 162.56 cm (05/26/16 5:00 AM) 162.56 cm (05/25/16 6:24 PM) Height 98.1 DegF (05/27/16 11:08 AM) 98.2 DegF (05/27/16 7:20 AM) 98.0 DegF (05/27/16 4:00 AM) Temperature Oral [96.4-99.1 DegF] 110/67 mmHg (05/27/16 11:08 AM) 119/72 mmHg (05/27/16 7:20 AM) 119/59 mmHg (05/27/16 4:00 AM) Blood Pressure [90-140/60-90 mmHg] 18 BRMIN (05/27/16 7:20 AM) 18 BRMIN (05/27/16 4:00 AM) 18 BRMIN (05/27/16 12:00 AM) Respiratory Rate [14-20 BRMIN] 56 bpm *LOW* (05/27/16 11:08 AM) 58 bpm *LOW* (05/27/16 7:20 AM) 64 bpm (05/27/16 4:00 AM) Peripheral Pulse Rate [60-100 bpm] 129.148 kg (05/26/16 5:00 AM) 129.091 kg (05/25/16 6:24 PM) Weight 48.87 m2 (05/26/16 5:00 AM) 48.85 m2 (05/25/16 6:24 PM) Body Mass Index Problem List Condition Effective Dates Status Health Status Informant Asthma(Confirmed) Resolved Back ache(Confirmed) Active Bronchitis(Confirmed Active ) Chronic back Resolved pain(Confirmed) Chronic knee Resolved instability(Confirme d)1 COPD(Confirmed) Resolved CVA (cerebral Resolved vascular accident)(Confirmed) Depression(Confirmed Active ) Glaucoma(Confirmed) Resolved TIA(Confirmed) Resolved 1pain Allergies, Adverse Reactions, Alerts Substance Reaction Severity Status iodine Active Latex Active penicillins Active theophylline Active Tylenol1 Active 1Pt only allergic to IV Acetaminophen. clarified with pt Medications albuterol 90 mcg/inh inhalation aerosol 2 puff, Route: INHALATION, Drug Form: AERO/A, Dosing Weight 129.148, kg, QID, CO N Wheezing, Start date: 05/26/16 11:21:00 CDT, Duration: 30 day, Stop date: 06/04 12/16 11:20:00 CDT Notes: Albuterol 90 microgram/inh 8gm HFAWASTE: Aerosol - Return to Pharmacy [facility] as: Pallavi Yost Start Date: 05/26/16 Stop Date: 05/27/16 Status: Discontinued aspirin 325 mg tablet 325 mg, 1 tab, Route: PO, Drug form: TAB, Daily, Dosing Weight 129.148, kg, Star t date: 05/27/16 9:00:00 CDT, Duration: 30 day, Stop date: 06/25/16 9:00:00 CDT Notes: Take with food. Start Date: 05/27/16 Stop Date: 05/27/16 Status: Discontinued aspirin 325 mg tablet 325 mg=1 tab, PO, Daily, # 30 tab, 0 Refill(s) Start Date: 05/26/16 Status: Ordered aspirin 325 mg tablet 325 mg, Route: PO, Drug form: TAB, ONCE, Dosing Weight 129.091, kg, Priority: ST AT, Start date: 05/25/16 23:25:00 CDT, Stop date: 05/25/16 23:25:00 CDT Start Date: 05/25/16 Stop Date: 05/25/16 Status: Completed aspirin 325 mg tablet, enteric coated 325 mg, 1 tab, Route: PO, Drug form: ECTAB, Daily, Dosing Weight 129.091, kg, St art date: 05/26/16 1:00:00 CDT, Duration: 30 day, Stop date: 06/24/16 9:00:00 CD T Notes: (Do Not Crush) Do not crush or chew. Start Date: 05/26/16 Stop Date: 05/27/16 Status: Discontinued Ativan 2 mg, 1 mL, Route: IVP, Drug form: INJ, ONCE, Dosing Weight 129.148, kg, PRN Oth er -See Comment, Start date: 05/26/16 13:56:00 CDT, before MRI exam Notes: (Same as: Ativan) Start Date: 05/26/16 Stop Date: 05/26/16 Status: Completed Ativan 2 mg, 1 mL, Route: IVP, Drug form: INJ, ONCE, Dosing Weight 129.148, kg, PRN Oth er -See Comment, Start date: 05/26/16 11:12:00 CDT, Stop date: 05/26/16 11:12:00 CDT, before MRI exam Notes: (Same as: Ativan) Start Date: 05/26/16 Stop Date: 05/26/16 Status: Deleted atorvastatin 80 mg, 2 tab, Route: PO, Drug form: TAB, Bedtime, Dosing Weight 129.091, kg, Sta rt date: 05/26/16 21:00:00 CDT, Duration: 30 day, Stop date: 06/24/16 21:00:00 C DT Notes: (Same as: Lipitor) Start Date: 05/26/16 Stop Date: 05/27/16 Status: Discontinued Carafate 1 gm, 1 tab, Route: PO, Drug form: TAB, QID-Before Meals, Dosing Weight 129.148, kg, Start date: 05/26/16 11:30:00 CDT, Duration: 30 day, Stop date: 06/25/16 7: 30:00 CDT Notes: May interfere w/enteral feeds - Take 1 hr before or 2 hr after antacids, dairy pdt, meals & minerals - On empty stomach. (Same As: Carafate) Start Date: 05/26/16 Stop Date: 05/27/16 Status: Discontinued Carafate 1 g oral tablet 1 gm=1 tab, PO, QID-Before Meals, # 120 tab, 0 Refill(s) Start Date: 05/26/16 Status: Ordered clonazePAM 1 mg, 1 tab, Route: PO, Drug form: TAB, Bedtime, Dosing Weight 129.148, kg, Star t date: 05/26/16 21:00:00 CDT, Duration: 30 day, Stop date: 06/24/16 21:00:00 CD T Notes: (Same As: KlonoPIN) Start Date: 05/26/16 Stop Date: 05/27/16 Status: Discontinued Dilaudid 1 mg, 1 mL, Route: IVP, Drug form: INJ, ONCE, Dosing Weight 129.091, kg, Priorit y: STAT, Start date: 05/25/16 23:03:00 CDT, Stop date: 05/25/16 23:03:00 CDT Start Date: 05/25/16 Stop Date: 05/25/16 Status: Completed enoxaparin 40 mg, 0.4 mL, Route: SUB-Q, Drug form: INJ, [id number], Dosing Weight 129.148, kg , Consider for obese patients, Start date: 05/26/16 12:00:00 CDT, Duration: 30 d ay, Stop date: 06/25/16 0:00:00 CDT Notes: (Same as: Lovenox) Start Date: 05/26/16 Stop Date: 05/27/16 Status: Discontinued famotidine 20 mg, 1 tab, Route: PO, Drug form: TAB, Q12H, Dosing Weight 129.091, kg, Start date: 05/26/16 9:00:00 CDT, Duration: 30 day, Stop date: 06/24/16 21:00:00 CDT Notes: (Same as: Pepcid) Start Date: 05/26/16 Stop Date: 05/27/16 Status: Discontinued Flonase 0.05 mg/inh nasal spray 1 spray, Route: NASAL, Drug Form: SPRY, Dosing Weight 129.148, kg, BID, Start da te: 05/26/16 17:00:00 CDT, Duration: 30 day, Stop date: 06/25/16 9:00:00 CDT Notes: (Same as: Flonase) Start Date: 05/26/16 Stop Date: 05/27/16 Status: Discontinued folic acid 1 mg, 1 tab, Route: PO, Drug form: TAB, Daily, Dosing Weight 129.148, kg, Start date: 05/27/16 9:00:00 CDT, Duration: 30 day, Stop date: 06/25/16 9:00:00 CDT Notes: (Same as: Folvite) Start Date: 05/27/16 Stop Date: 05/27/16 Status: Discontinued Lasix 40 mg oral tablet 40 mg, 1 tab, Route: PO, Drug form: TAB, Daily, Dosing Weight 129.148, kg, Start date: 05/27/16 9:00:00 CDT, Duration: 30 day, Stop date: 06/25/16 9:00:00 CDT Notes: (Same as: Lasix) May cause GI upset. Give with food or milk. Start Date: 05/27/16 Stop Date: 05/27/16 Status: Discontinued Lipitor 20 mg, 2 tab, Route: PO, Drug form: TAB, Bedtime, Dosing Weight 129.148, kg, Sta rt date: 05/26/16 21:00:00 CDT, Duration: 30 day, Stop date: 06/24/16 21:00:00 C DT Notes: (Same As: Lipitor) Start Date: 05/26/16 Stop Date: 05/27/16 Status: Discontinued Lyrica 100 mg oral capsule 100 mg=1 cap, PO, Bedtime, 0 Refill(s) Start Date: 05/26/16 Status: Ordered metoprolol tartrate 12.5 mg, 0.5 tab, Route: PO, Drug form: TAB, Q12H, Dosing Weight 129.091, kg, St art date: 05/26/16 9:00:00 CDT, Duration: 30 day, Stop date: 06/24/16 21:00:00 C DT Notes: (Same as: Lopressor) Start Date: 05/26/16 Stop Date: 05/27/16 Status: Discontinued morphine Sulfate 2 mg, Route: IVP, ONCE, Dosing Weight 129.091, kg, Start date: 05/26/16 2:52:00 CDT, Stop date: 05/26/16 2:52:00 CDT Start Date: 05/26/16 Stop Date: 05/26/16 Status: Completed morphine Sulfate 2 mg, 1 mL, Route: IVP, Drug form: INJ, ONCE, Dosing Weight 129.091, kg, Start d ate: 05/26/16 3:03:00 CDT, Stop date: 05/26/16 3:03:00 CDT Notes: (Same as:MORPhine Sulfate) Start Date: 05/26/16 Stop Date: 05/26/16 Status: Completed morphine Sulfate 2 mg, 1 mL, Route: IVP, Drug form: INJ, Q4H, Dosing Weight 129.091, kg, PRN Ches t Pain, Start date: 05/26/16 5:00:00 CDT, Duration: 30 day, Stop date: 06/25/16 4:59:00 CDT Notes: (Same as:MORPhine Sulfate) Start Date: 05/26/16 Stop Date: 05/27/16 Status: Discontinued nitroglycerin 0.4 mg sublingual tablet 0.4 mg, 1 tab, Route: SL, Drug form: TAB, Q5Min, Dosing Weight 129.091, kg, PRN Chest Pain, Start date: 05/26/16 2:51:00 CDT, Duration: 30 day, Stop date: 06/25 2:50:00 CDT Notes: (Same as:Nitroquick, Nitrostat)"Do Not Crush" Sublingual tablet Start Date: 05/26/16 Stop Date: 05/27/16 Status: Discontinued nitroglycerin 0.4 mg sublingual tablet 0.4 mg, 1 tab, Route: SL, Drug form: TAB, Q5Min, Dosing Weight 129.091, kg, PRN Chest Pain, Start date: 05/26/16 2:58:00 CDT, Duration: 30 day, Stop date: 06/25 2:57:00 CDT Notes: (Same as:Nitroquick, Nitrostat)"Do Not Crush" Sublingual tablet Start Date: 05/26/16 Stop Date: 05/27/16 Status: Discontinued [place] 10/325 oral tablet 1 tab, Route: PO, Drug Form: TAB, Dosing Weight 129.148, kg, BID, PRN Pain Score 4-6, Start date: 05/26/16 11:24:00 CDT, Duration: 30 day, Stop date: 06/25/16 1 1:23:00 CDT Notes: Do not exceed 4gm/day of acetaminophen. (Same as: [place] 325/10) Start Date: 05/26/16 Stop Date: 05/27/16 Status: Discontinued Plavix 75 mg, 1 tab, Route: PO, Drug form: TAB, Daily, Dosing Weight 129.148, kg, Start date: 05/27/16 9:00:00 CDT, Duration: 30 day, Stop date: 06/25/16 9:00:00 CDT Notes: (Same As: Plavix) Start Date: 05/27/16 Stop Date: 05/27/16 Status: Discontinued pneumococcal 23-valent vaccine 0.5 mL, Route: IM, Drug Form: INJ, Daily, Start date: 05/26/16 9:00:00 CDT, Dura tion: 1 doses or times, Stop date: 05/26/16 9:00:00 CDT Notes: (Same as: Pneumovax 23) Refrigerate Start Date: 05/26/16 Stop Date: 05/26/16 Status: Completed potassium chloride 10 mEq oral tablet, extended release 10 mEq, 1 tab, Route: PO, Drug form: ERTAB, BID, Dosing Weight 129.148, kg, Star t date: 05/26/16 17:00:00 CDT, Duration: 30 day, Stop date: 06/25/16 9:00:00 CDT Notes: (Same as: K-Dur 10)"Do Not Crush" With food and full glass of water Start Date: 05/26/16 Stop Date: 05/27/16 Status: Discontinued Saline Flush 0.9% 10 mL, Route: IVP, Drug Form: INJ, Dosing Weight 129.091, kg, PRN, PRN Line Flus h, Start date: 05/25/16 18:28:00 CDT, Duration: 30 day, Stop date: 06/24/16 18:2 7:00 CDT Notes: (Same as: BD Posiflush) Start Date: 05/25/16 Stop Date: 05/27/16 Status: Discontinued Saline Flush 0.9% 10 ml, Route: IVP, Drug Form: INJ, Dosing Weight 129.091, kg, Q12H, Start date: 05/26/16 9:00:00 CDT, Duration: 30 day, Stop date: 06/24/16 21:00:00 CDT Notes: (Same as: BD Posiflush) Start Date: 05/26/16 Stop Date: 05/27/16 Status: Discontinued Saline Flush 0.9% 10 ml, Route: IVP, Drug Form: INJ, Dosing Weight 129.091, kg, PRN, PRN Line Flus h, Start date: 05/26/16 0:37:00 CDT, Duration: 30 day, Stop date: 06/25/16 0:36: 00 CDT Notes: (Same as: BD Posiflush) Start Date: 05/26/16 Stop Date: 05/27/16 Status: Discontinued Singulair 5 mg, 1 tab, Route: CHEW, Drug form: CHEWTAB, Bedtime, Dosing Weight 129.148, kg , Start date: 05/26/16 21:00:00 CDT, Duration: 30 day, Stop date: 06/24/16 21:00 :00 CDT Notes: (Same as:Singulair) Start Date: 05/26/16 Stop Date: 05/27/16 Status: Discontinued Sodium Chloride 0.9% (Bolus) IV 1,000 mL, 1,000 ml/hr, Infuse Over: 1 hr, Route: IV, 1,000, Drug form: INJ, ONCE , Priority: STAT, Dosing Weight 129.091 kg, Start date: 05/25/16 18:28:00 CDT, D uration: 1 doses or times, Stop date: 05/25/16 18:28:00 CDT Start Date: 05/25/16 Stop Date: 05/25/16 Status: Completed sodium chloride 0.9% 1000 ml INJ 1,000 mL 1,000 mL, Rate: 75 ml/hr, Infuse over: 13.3 hr, Route: IV, Dosing Weight 129.091 kg, Total Volume: 1,000, Start date: 05/26/16 0:37:00 CDT, Duration: 30 day, St op date: 06/25/16 0:36:00 CDT Start Date: 05/26/16 Stop Date: 05/27/16 Status: Discontinued Symbicort 160/4.5 inhalation aerosol with adapter 2 inhalation, Route: INHALATION, Drug Form: AERO/A, Dosing Weight 129.148, kg, B ID, Start date: 05/26/16 17:00:00 CDT, Duration: 30 day, Stop date: 06/25/16 9:0 0:00 CDT Notes: (Same as: Symbicort)WASTE: Aerosol - Return to Pharmacy Start Date: 05/26/16 Stop Date: 05/27/16 Status: Discontinued Synthroid 100 microgram, 1 tab, Route: PO, Drug form: TAB, Q6AM, Dosing Weight 129.148, kg , Start date: 05/27/16 6:00:00 CDT, Duration: 30 day, Stop date: 06/25/16 6:00:0 0 CDT Notes: Take 1 hour before or 2 hours after meal; Enteral feeds may interefere wi th the absorption of this medication. (Same as:Levothroid, Synthroid) Start Date: 05/27/16 Stop Date: 05/27/16 Status: Discontinued Wellbutrin XL 150 mg, 1 tab, Route: PO, Drug form: ERTAB, Q24H, Dosing Weight 129.148, kg, Sta rt date: 05/26/16 12:00:00 CDT, Duration: 30 day, Stop date: 06/24/16 12:00:00 C DT Notes: (Same as: Wellbutrin XL)"Do Not Crush" Start Date: 05/26/16 Stop Date: 05/27/16 Status: Discontinued Zofran 4 mg, Route: IVP, Drug form: INJ, ONCE, Dosing Weight 129.091, kg, Start date: 0 05/26/16 3:03:00 CDT, Stop date: 05/26/16 3:03:00 CDT Start Date: 05/26/16 Stop Date: 05/26/16 Status: Completed Zofran 4 mg, 2 mL, Route: IV, Drug form: INJ, Q4H, Dosing Weight 129.148, kg, PRN as ne eded for nausea/vomiting, Start date: 05/26/16 6:24:00 CDT, Duration: 30 day, St op date: 06/25/16 6:23:00 CDT Notes: (Same as: Zofran) MEDICATION WASTE Product Size: 4 mgProduct Was yoselyn: ___ mg Start Date: 05/26/16 Stop Date: 05/27/16 Status: Discontinued Results ELECTROLYTES 1 2 3 Most recent to oldest [Reference Range]: 141 mEq/L (05/26/16 3:40 AM) 138 mEq/L (05/25/16 7:58 PM) Sodium Lvl [135-145 mEq/L] 3.6 mEq/L (05/26/16 3:40 AM) 3.6 mEq/L (05/25/16 7:58 PM) Potassium Lvl [3.5-5.1 mEq/L] 106 mEq/L (05/26/16 3:40 AM) 103 mEq/L (05/25/16 7:58 PM) Chloride Lvl [95-109 mEq/L] 30 mEq/L (05/26/16 3:40 AM) 31 mEq/L (05/25/16 7:58 PM) CO2 [24-32 mEq/L] 8.6 mEq/L *LOW* (05/26/16 3:40 AM) 7.6 mEq/L *LOW* (05/25/16 7:58 PM) AGAP [10.0-20.0 mEq/L] CHEM PANEL 1 2 3 Most recent to oldest [Reference Range]: 0.85 mg/dL (05/26/16 3:40 AM) 0.94 mg/dL (05/25/16 7:58 PM) Creatinine Lvl [0.50-1.40 mg/dL] 87 mL/min/1.73m2 1 *NA* (05/26/16 3:40 AM) 78 mL/min/1.73m2 2 *NA* (05/25/16 7:58 PM) eGFR 14 mg/dL (05/26/16 3:40 AM) 14 mg/dL (05/25/16 7:58 PM) BUN [7-22 mg/dL] 15 (05/25/16 7:58 PM) B/C Ratio [6-25] 110 mg/dL *HI* (05/26/16 3:40 AM) 92 mg/dL (05/25/16 7:58 PM) Glucose Lvl [70-99 mg/dL] 7.7 g/dL (05/25/16 7:58 PM) Total Protein [6.4-8.4 g/dL] 3.8 g/dL (05/25/16 7:58 PM) Albumin Lvl [3.5-5.0 g/dL] 3.9 g/dL (05/25/16 7:58 PM) Globulin [2.7-4.2 g/dL] 1.0 (05/25/16 7:58 PM) A/G Ratio [0.7-1.6] 8.4 mg/dL *LOW* (05/26/16 3:40 AM) 8.6 mg/dL (05/25/16 7:58 PM) Calcium Lvl [8.5-10.5 mg/dL] 13 unit/L (05/25/16 7:58 PM) ALT [0-65 unit/L] 13 unit/L (05/25/16 7:58 PM) AST [0-37 unit/L] 103 unit/L (05/25/16 7:58 PM) Alk Phos [39-136 unit/L] 0.4 mg/dL (05/25/16 7:58 PM) Bili Total [0.2-1.3 mg/dL] 1.9 mMol/L (05/26/16 2:53 AM) Lactic Acid Lvl [0.5-2.2 mMol/L] 1Result Comment: The eGFR is calculated using [...] be mul tiplied by the estimated BMI. 2Result Comment: The eGFR is calculated using the [...] tiplied by the estimated BMI. CARDIAC ENZYMES 1 2 3 Most recent to oldest [Reference Range]: 51 unit/L (05/26/16 3:02 AM) 70 unit/L (05/25/16 7:58 PM) Total CK [12-191 unit/L] 0.5 ng/mL (05/25/16 7:58 PM) CK MB [0.5-3.6 ng/mL] 0.7 (05/25/16 7:58 PM) CK MB Index [0.0-2.5] <0.02 ng/mL (05/26/16 3:40 AM) <0.02 ng/mL (05/26/16 2:53 AM) <0.02 ng/mL (05/25/16 7:58 PM) Troponin-I [0.00-0.40 ng/mL] 20 pg/mL (05/25/16 7:58 PM) BNP [<=100 pg/mL] LIPIDS 1 2 3 Most recent to oldest [Reference Range]: 2.71 *LOW* (05/26/16 3:40 AM) CHD Risk [3.90-5.80] 152 mg/dL (05/26/16 3:40 AM) Chol [<=199 mg/dL] 98 mg/dL (05/26/16 3:40 AM) Trig [<=149 mg/dL] 56 mg/dL *LOW* (05/26/16 3:40 AM) HDL [>=61 mg/dL] 76 mg/dL (05/26/16 3:40 AM) LDL (Calculated) [<=99 mg/dL] 20 *NA* (05/26/16 3:40 AM) VLDL SPECIAL CHEMISTRY 1 2 3 Most recent to oldest [Reference Range]: 6.0 % *HI* (05/26/16 3:40 AM) Hgb A1C [<=5.6 %] URINE AND STOOL 1 2 3 Most recent to oldest [Reference Range]: Clear (05/26/16 2:53 AM) Clear (05/25/16 9:13 PM) UA Turbidity [Clear] Yellow *NA* (05/26/16 2:53 AM) UA Color [Yellow] Ltyellow *NA* (05/25/16 9:13 PM) UA Color 5.0 (05/26/16 2:53 AM) 6.0 (05/25/16 9:13 PM) UA pH [5.0-8.0] 1.021 (05/26/16 2:53 AM) 1.017 (05/25/16 9:13 PM) UA Spec Grav [<=1.030] Negative mg/dL *NA* (05/26/16 2:53 AM) Negative mg/dL *NA* (05/25/16 9:13 PM) UA Glucose [Negative mg/dL] Negative (05/26/16 2:53 AM) Negative (05/25/16 9:13 PM) UA Blood [Negative] Negative mg/dL *NA* (05/26/16 2:53 AM) Negative mg/dL *NA* (05/25/16 9:13 PM) UA Ketones [Negative mg/dL] Negative mg/dL (05/26/16 2:53 AM) Negative mg/dL (05/25/16 9:13 PM) UA Protein [Negative mg/dL] <=1.0 mg/dL *NA* (05/26/16 2:53 AM) <=1.0 mg/dL *NA* (05/25/16 9:13 PM) UA Urobilinogen [0.1-1.0 mg/dL] Negative *NA* (05/26/16 2:53 AM) Negative *NA* (05/25/16 9:13 PM) UA Bili [Negative] Trace *ABN* (05/26/16 2:53 AM) Negative (05/25/16 9:13 PM) UA Leuk Est [Negative] Negative (05/26/16 2:53 AM) Negative (05/25/16 9:13 PM) UA Nitrite [Negative] 2 /HPF (05/26/16 2:53 AM) 1 /HPF (05/25/16 9:13 PM) UA WBC [0-5 /HPF] 1 /HPF (05/26/16 2:53 AM) <1 /HPF (05/25/16 9:13 PM) UA RBC [0-2 /HPF] Occasional /HPF *NA* (05/25/16 9:13 PM) UA Bacteria [None Seen /HPF] Occasional /LPF *NA* (05/26/16 2:53 AM) Occasional /LPF *NA* (05/25/16 9:13 PM) UA Sq Epi [Few /LPF] Few /LPF *NA* (05/26/16 2:53 AM) UA Mucus [None Seen /LPF] IMMUNOLOGY 1 2 3 Most recent to oldest [Reference Range]: Positive *ABN* (05/27/16 10:13 AM) JAN [Negative] 1:320 *ABN* (05/27/16 10:13 AM) JAN Titer [Negative] Pattern appears mixed Speckled and Homogeneous. *NA* (05/27/16 10:13 AM) JAN Interp 0.6 APL-U/mL (05/27/16 10:13 AM) 0.5 APL-U/mL (05/27/16 10:13 AM) Cardiolipin IgA [<=19.9 APL-U/mL] <1.6 GPL-U/mL (05/27/16 10:13 AM) <1.6 GPL-U/mL (05/27/16 10:13 AM) Cardiolipin IgG [<=19.9 GPL-U/mL] 0.5 MPL-U/mL (05/27/16 10:13 AM) 0.4 MPL-U/mL (05/27/16 10:13 AM) Cardiolipin IgM [<=19.9 MPL-U/mL] 0.4 unit/mL (05/27/16 10:13 AM) Beta2-Glycoprotein IgM [<=19.9 unit/mL] <1.4 unit/mL (05/27/16 10:13 AM) Beta2-Glycoprotein IgG [<=19.9 unit/mL] <0.6 unit/mL (05/27/16 10:13 AM) Beta2-Glycoprotein IgA [<=19.9 unit/mL] 8.7 uMol/L (05/27/16 10:13 AM) 8.5 uMol/L (05/27/16 10:13 AM) Homocyst Tot [3.7-13.9 uMol/L] HEMATOLOGY 1 2 3 Most recent to oldest [Reference Range]: 9.1 K/CMM (05/26/16 2:53 AM) 10.1 K/CMM (05/25/16 7:58 PM) WBC [3.7-10.4 K/CMM] 4.87 M/CMM (05/26/16 2:53 AM) 5.00 M/CMM (05/25/16 7:58 PM) RBC [4.20-5.40 M/CMM] 13.1 g/dL (05/26/16 2:53 AM) 13.3 g/dL (05/25/16 7:58 PM) Hgb [12.0-16.0 g/dL] 39.7 % (05/26/16 2:53 AM) 40.7 % (05/25/16 7:58 PM) Hct [36.0-48.0 %] 81.6 fL (05/26/16 2:53 AM) 81.4 fL (05/25/16 7:58 PM) MCV [80.0-98.0 fL] 26.8 pg *LOW* (05/26/16 2:53 AM) 26.7 pg *LOW* (05/25/16 7:58 PM) MCH [27.0-31.0 pg] 32.9 g/dL (05/26/16 2:53 AM) 32.8 g/dL (05/25/16 7:58 PM) MCHC [32.0-36.0 g/dL] 14.5 % (05/26/16 2:53 AM) 14.2 % (05/25/16 7:58 PM) RDW [11.5-14.5 %] 206 K/CMM (05/26/16 2:53 AM) 214 K/CMM (05/25/16 7:58 PM) Platelet [133-450 K/CMM] 8.9 fL (05/26/16 2:53 AM) 9.1 fL (05/25/16 7:58 PM) MPV [7.4-10.4 fL] 60.7 % (05/26/16 2:53 AM) 61.9 % (05/25/16 7:58 PM) Segs [45.0-75.0 %] 28.8 % (05/26/16 2:53 AM) 28.3 % (05/25/16 7:58 PM) Lymphocytes [20.0-40.0 %] 7.4 % (05/26/16 2:53 AM) 6.6 % (05/25/16 7:58 PM) Monocytes [2.0-12.0 %] 2.6 % (05/26/16 2:53 AM) 2.5 % (05/25/16 7:58 PM) Eosinophils [0.0-4.0 %] 0.5 % (05/26/16 2:53 AM) 0.7 % (05/25/16 7:58 PM) Basophils [0.0-1.0 %] 5.5 K/CMM (05/26/16 2:53 AM) 6.3 K/CMM (05/25/16 7:58 PM) Segs-Bands # [1.5-8.1 K/CMM] 2.6 K/CMM (05/26/16 2:53 AM) 2.9 K/CMM (05/25/16 7:58 PM) Lymphocytes # [1.0-5.5 K/CMM] 0.7 K/CMM (05/26/16 2:53 AM) 0.7 K/CMM (05/25/16 7:58 PM) Monocytes # [0.0-0.8 K/CMM] 0.2 K/CMM (05/26/16 2:53 AM) 0.3 K/CMM (05/25/16 7:58 PM) Eosinophils # [0.0-0.5 K/CMM] 0.1 K/CMM (05/25/16 7:58 PM) Basophils # [0.0-0.2 K/CMM] 13.2 seconds (8/24/16 2:53 AM) 12.8 seconds (05/25/16 7:58 PM) PT [12.0-14.7 seconds] 0.97 (05/26/16 2:53 AM) 0.93 (05/25/16 7:58 PM) INR [0.85-1.17] 94 % (05/27/16 10:13 AM) AT III Func [77-140 %] 25.1 seconds (05/26/16 2:53 AM) 25.3 seconds (05/25/16 7:58 PM) PTT [22.9-35.8 seconds] 0.79 (05/27/16 10:13 AM) dRVV Ratio [<=1.20] Negative (05/27/16 10:13 AM) Hex Phos N [Negative] Negative for lupus anticoagulant by DRVV screen and hexagonal phospholipid neutralization test. If there is a strong clinical suspicion of lupus anticoagulant, additional testing, to include repeat studies at a clinically appropriate interval and anticardiolipin antibody assays, is recommended. Interpretation performed at [facility]. *NA* (05/27/16 10:13 AM) Lup Interp 90 % (05/27/16 10:13 AM) Protein C Func [72-147 %] 67 % (05/27/16 10:13 AM) Protein S Func [54-137 %] Immunizations Not Given Vaccine Date Status Refusal Reason pneumococcal 23-valent vaccine 05/26/16 Not Given Patient Refuses Procedures Procedure Date Related Diagnosis Body Site hysterectomy Cholecystectomy Gastric bypass Hysterectomy Tubal ligation Social History Social History Type Response Smoking Status Never smoker; Exposure to Tobacco Smoke None; Cigarette Smoking Last 365 Days No; Reg Smoking Cessation Counseling No Assessment and Plan Extracted from: Title: CLINICAL NOTE Author: Elia Hess Date: 05/27/16 Patient seen and evaluated no evidence of stroke in view of weakness have requested rehab evaluation. OK TO DISCHARGE IF CLEAR BY REHAB FULL NOTE TO FOLLOW Diagnostic Tests Pending* Arterial Thrombosis Panel. 05/27/16 9:35 AM
--- OUTSIDE RECORDS SUMMARY | 2018-12-09 08:09 | XMS REPORT | Summary of Care ---
Author Author [facility] Organization [facility] Address Unknown Phone Unavailable Encounter UNIQUE Martinez(CORA) [id number] Date(s): 03/11/16 - 03/13/16 [facility] [address] [facility] provided by [facility] [place] [address]- Discharge Disposition: Home Attending Physician: Bin Duran MD Admitting Physician: Sb Sorensen MD Vital Signs 1 2 3 Most recent to oldest [Reference Range]: 162.56 cm (03/12/16 2:08 AM) Height 96.6 DegF (03/13/16 4:05 PM) 96.3 DegF *LOW* (03/13/16 8:25 AM) 97.9 DegF (03/13/16 3:44 AM) Temperature Oral [96.4-99.1 DegF] 139/66 mmHg (03/13/16 4:05 PM) 133/78 mmHg (03/13/16 8:25 AM) 104/58 mmHg (03/13/16 3:44 AM) Blood Pressure [90-140/60-90 mmHg] 18 BRMIN (03/13/16 4:05 PM) 18 BRMIN (03/13/16 8:25 AM) 18 BRMIN (03/13/16 3:44 AM) Respiratory Rate [14-20 BRMIN] 64 bpm (03/13/16 8:25 AM) 68 bpm (03/13/16 3:44 AM) 65 bpm (03/12/16 11:09 PM) Peripheral Pulse Rate [60-100 bpm] 129.091 kg (03/13/16 9:00 AM) 124.545 kg (03/12/16 2:08 AM) 100 kg (03/11/16 7:29 PM) Weight 47.13 m2 (03/12/16 2:08 AM) Body Mass Index Problem List Condition Effective Dates Status Health Status Informant Asthma(Confirmed) Resolved Back ache(Confirmed) Active Bronchitis(Confirmed Active ) Chronic back Resolved pain(Confirmed) Chronic knee Resolved instability(Confirme d)1 COPD(Confirmed) Resolved CVA (cerebral Resolved vascular accident)(Confirmed) Depression(Confirmed Active ) Glaucoma(Confirmed) Resolved TIA(Confirmed) Resolved 1pain Allergies, Adverse Reactions, Alerts Substance Reaction Severity Status iodine Active Latex Active penicillins Active theophylline Active Tylenol Active Medications albuterol 0.083% inhalation solution 2.49 mg, 3 mL, Route: NEB, Drug form: SOLN, PRN, Dosing Weight 129.091, kg, PRN Respiratory Protocol, Priority: NOW, Start date: 03/13/16 16:15:00 CDT, Duration : 30 day, Stop date: 04/12/16 16:14:00 CDT Notes: SEE RT DOCUMENTATION (Same as: Dylontil) Start Date: 03/13/16 Stop Date: 03/13/16 Status: Discontinued albuterol 90 mcg/inh inhalation aerosol 2 puff, INHALATION, QID, PRN Wheezing, # 17 gm, 0 Refill(s) Start Date: 03/13/16 Status: Ordered aspirin 325 mg tablet 325 mg=1 tab, PO, Daily, 0 Refill(s) Start Date: 03/12/16 Stop Date: 03/13/16 Status: Discontinued aspirin 81 mg tablet, enteric coated 81 mg=1 tab, PO, Daily, 0 Refill(s) Start Date: 03/13/16 Status: Ordered aspirin 81 mg tablet, enteric coated 81 mg, 1 tab, Route: PO, Drug form: ECTAB, Daily, Dosing Weight 100, kg, Start d ate: 03/12/16 9:00:00 CDT, Duration: 30 day, Stop date: 04/10/16 9:00:00 CDT Notes: Do not crush or chew.(Same As: Ecotrin) Start Date: 03/12/16 Stop Date: 03/13/16 Status: Discontinued aspirin 81 mg tablet, enteric coated 81 mg=1 tab, PO, Daily, # 90 tab, 3 Refill(s) Start Date: 03/11/16 Stop Date: 03/12/16 Status: Discontinued Bactrim DS 800 mg- 160 mg oral tablet 1 tab, PO, BID, X 6 day, # 12 tab, 0 Refill(s) Start Date: 03/13/16 Stop Date: 03/19/16 Status: Ordered cefTRIAXone 1 gm, Route: IVPB, Drug form: PDR/INJ, [id number], Dosing Weight 100, kg, Start venkata e: 03/12/16 0:00:00 CDT, Duration: 30 day, Stop date: 04/10/16 0:00:00 CDT Notes: (Same As: Rocephin).Use with 100 mL NS and infuse over 30 min MEDICA TION WASTE Product Size: 1000 mgProduct Wasted: ___ mg Start Date: 03/12/16 Stop Date: 03/13/16 Status: Discontinued clonazePAM 1 mg, 1 tab, Route: PO, Drug form: TAB, Bedtime, Dosing Weight 100, kg, Start da te: 03/12/16 21:00:00 CDT, Duration: 30 day, Stop date: 04/10/16 21:00:00 CDT Notes: (Same As: KlonoPIN) Start Date: 03/12/16 Stop Date: 03/13/16 Status: Discontinued clonazePAM 1 mg oral tablet 1 mg=1 tab, PO, Bedtime, 0 Refill(s) Start Date: 03/11/16 Status: Ordered folic acid 1 mg, 1 tab, Route: PO, Drug form: TAB, Daily, Dosing Weight 100, kg, Start date : 03/12/16 9:00:00 CDT, Duration: 30 day, Stop date: 04/10/16 9:00:00 CDT Notes: (Same as: Folvite) Start Date: 03/12/16 Stop Date: 03/13/16 Status: Discontinued Lasix 40 mg oral tablet 40 mg=1 tab, PO, Daily, # 30 tab, 0 Refill(s) Start Date: 03/11/16 Status: Ordered Lipitor 20 mg oral tablet 20 mg=1 tab, PO, Bedtime, # 30 tab, 0 Refill(s) Start Date: 03/13/16 Status: Ordered Lovenox 40 mg, 0.4 mL, Route: SUB-Q, Drug form: INJ, Daily, Dosing Weight 100, kg, Start date: 03/12/16 9:00:00 CDT, Duration: 30 day, Stop date: 04/10/16 9:00:00 CDT Notes: (Same as: Lovenox) Start Date: 03/12/16 Stop Date: 03/13/16 Status: Discontinued morphine Sulfate 4 mg, 1 mL, Route: IVP, Drug form: INJ, ONCE, Dosing Weight 100, kg, Priority: S TAT, Start date: 03/11/16 20:21:00 CDT, Stop date: 03/11/16 20:21:00 CDT Notes: (Same as:MORPhine Sulfate) Start Date: 03/11/16 Stop Date: 03/11/16 Status: Completed naproxen 500 mg, 1 tab, Route: PO, Drug form: TAB, ONCE, Dosing Weight 100, kg, Start venkata e: 03/12/16 0:04:00 CDT, Stop date: 03/12/16 0:04:00 CDT Notes: (Same as: Naprosyn) Take with food. Start Date: 03/12/16 Stop Date: 03/12/16 Status: Completed Rome 10/325 oral tablet 1 tab, Route: PO, Drug Form: TAB, Dosing Weight 100, kg, Q6H, PRN Pain Score 7-1 0, Start date: 03/11/16 23:43:00 CDT, Duration: 30 day, Stop date: 04/10/16 23:4 2:00 CDT Notes: Do not exceed 4gm/day of acetaminophen. (Same as: Rome 325/10) Start Date: 03/11/16 Stop Date: 03/13/16 Status: Discontinued Rome 10/325 oral tablet 1 tab, PO, BID, PRN for pain, # 24 tab, 0 Refill(s) Start Date: 03/11/16 Stop Date: 03/17/16 Status: Ordered Plavix 75 mg, 1 tab, Route: PO, Drug form: TAB, Daily, Dosing Weight 100, kg, Start venkata e: 03/12/16 9:00:00 CDT, Duration: 30 day, Stop date: 04/10/16 9:00:00 CDT Notes: (Same As: Plavix) Start Date: 03/12/16 Stop Date: 03/13/16 Status: Discontinued potassium chloride 10 mEq oral tablet, extended release 10 mEq=1 tab, PO, BID, 0 Refill(s) Start Date: 03/12/16 Status: Ordered Saline Flush 0.9% 10 mL, Route: IVP, Drug Form: INJ, Dosing Weight 100, kg, PRN, PRN Line Flush, S tart date: 03/11/16 19:36:00 CDT, Duration: 30 day, Stop date: 04/10/16 19:35:00 CDT Notes: (Same as: BD Posiflush) Start Date: 03/11/16 Stop Date: 03/13/16 Status: Discontinued Saline Flush 0.9% 10 ml, Route: IVP, Drug Form: INJ, Dosing Weight 100, kg, Q12H, Start date: 03/03 9:00:00 CDT, Duration: 30 day, Stop date: 04/10/16 21:00:00 CDT Notes: Same as: BD Posiflush Sterile Start Date: 03/12/16 Stop Date: 03/13/16 Status: Discontinued Saline Flush 0.9% 10 ml, Route: IVP, Drug Form: INJ, Dosing Weight 100, kg, PRN, PRN Line Flush, S tart date: 03/11/16 23:36:00 CDT, Duration: 30 day, Stop date: 04/10/16 23:35:00 CDT Notes: Same as: BD Posiflush Sterile Start Date: 03/11/16 Stop Date: 03/13/16 Status: Discontinued Singulair 5 mg, 1 tab, Route: CHEW, Drug form: CHEWTAB, Bedtime, Dosing Weight 100, kg, St art date: 03/12/16 21:00:00 CDT, Duration: 30 day, Stop date: 04/10/16 21:00:00 CDT Notes: (Same as:Singulair) Start Date: 03/12/16 Stop Date: 03/13/16 Status: Discontinued Symbicort 160/4.5 inhalation aerosol with adapter 2 inhalation, Route: INHALATION, Drug Form: AERO/A, Dosing Weight 100, kg, RBID, Start date: 03/12/16 8:00:00 CDT, Duration: 30 day, Stop date: 04/10/16 20:00:00 CDT Notes: (Same as: Symbicort)WASTE: Aerosol - Return to Pharmacy Start Date: 03/12/16 Stop Date: 03/13/16 Status: Discontinued Synthroid 75 microgram, 1 tab, Route: PO, Drug form: TAB, [id number], Dosing Weight 100, kg, S tart date: 03/12/16 6:30:00 CDT, Duration: 30 day, Stop date: 04/10/16 6:30:00 C DT Notes: Take 1 hour before or 2 hours after meal; Enteral feeds may interefere wi th the absorption of this medication. (Same as:Synthroid, Levothroid) Start Date: 03/12/16 Stop Date: 03/13/16 Status: Discontinued Synthroid 100 mcg (0.1 mg) oral tablet 100 microgram=1 tab, PO, Daily, 0 Refill(s) Start Date: 03/12/16 Status: Ordered Synthroid 75 mcg (0.075 mg) oral tablet 75 microgram=1 tab, PO, Daily, # 30 tab, 0 Refill(s) Start Date: 03/11/16 Stop Date: 03/12/16 Status: Discontinued Visipaque 320mg/ml 100 mL, Route: IVP, Drug Form: SOLN, Dosing Weight 100, kg, ONCALL, STAT, Start date: 03/11/16 20:19:00 CDT, Duration: 1 doses or times, Dose=2.2ml/kg, Max dos d=213xc -- "To be infused by Radiology Staff ONLY" Start Date: 03/11/16 Stop Date: 03/11/16 Status: Completed Wellbutrin SR 150 mg, 1 tab, Route: PO, Drug form: ERTAB, Daily, Dosing Weight 100, kg, Start date: 03/12/16 9:00:00 CDT, Duration: 30 day, Stop date: 04/10/16 9:00:00 CDT Notes: (Do not crush) (Same As: Wellbutrin SR) Start Date: 03/12/16 Stop Date: 03/12/16 Status: Deleted Wellbutrin XL 150 mg, 1 tab, Route: PO, Drug form: ERTAB, Daily, Start date: 03/12/16 12:30:00 CDT, Duration: 30 day, Stop date: 04/11/16 9:00:00 CDT Notes: (Same as: Wellbutrin XL)"Do Not Crush" Start Date: 03/12/16 Stop Date: 03/13/16 Status: Discontinued Wellbutrin XL 150 mg/24 hours oral tablet, extended release 150 mg=1 tab, PO, Q24H, 0 Refill(s) Start Date: 03/12/16 Status: Ordered Zofran 4 mg, 2 mL, Route: IV, Drug form: INJ, Q8H, Dosing Weight 100, kg, PRN as needed for nausea/vomiting, Start date: 03/11/16 23:38:00 CDT, Duration: 30 day, Stop date: 04/10/16 23:37:00 CDT Notes: (Same as: Zofran) MEDICATION WASTE Product Size: 4 mgProduct Was yoselyn: ___ mg Start Date: 03/11/16 Stop Date: 03/13/16 Status: Discontinued Results ELECTROLYTES 1 2 3 Most recent to oldest [Reference Range]: 141 mEq/L (03/11/16 7:36 PM) Sodium Lvl [135-145 mEq/L] 3.9 mEq/L (03/11/16 7:36 PM) Potassium Lvl [3.5-5.1 mEq/L] 105 mEq/L (03/11/16 7:36 PM) Chloride Lvl [95-109 mEq/L] 26 mEq/L (03/11/16 7:36 PM) CO2 [24-32 mEq/L] 13.9 mEq/L (03/11/16 7:36 PM) AGAP [10.0-20.0 mEq/L] CHEM PANEL 1 2 3 Most recent to oldest [Reference Range]: 1.15 mg/dL (03/11/16 7:36 PM) Creatinine Lvl [0.50-1.40 mg/dL] 58 mL/min/1.73m2 1 *NA* (03/11/16 7:47 PM) 61 mL/min/1.73m2 2 *NA* (03/11/16 7:36 PM) eGFR 10 mg/dL (03/11/16 7:36 PM) BUN [7-22 mg/dL] 99 mg/dL (03/11/16 7:36 PM) Glucose Lvl [70-99 mg/dL] 1.2 mg/dL (03/11/16 7:47 PM) POC Creatinine [0.5-1.4 mg/dL] 6.0 g/dL *LOW* (03/13/16 1:37 AM) Total Protein [6.4-8.4 g/dL] 2.8 g/dL *LOW* (03/13/16 1:37 AM) Albumin Lvl [3.5-5.0 g/dL] 3.2 g/dL (03/13/16 1:37 AM) Globulin [2.0-4.0 g/dL] 0.9 (03/13/16 1:37 AM) A/G Ratio [0.7-1.6] 9.0 mg/dL (03/11/16 7:36 PM) Calcium Lvl [8.5-10.5 mg/dL] 2.0 mg/dL (03/12/16 2:04 AM) Magnesium Lvl [1.8-2.4 mg/dL] 15 unit/L (03/13/16 1:37 AM) ALT [0-65 unit/L] 17 unit/L (03/13/16 1:37 AM) AST [0-37 unit/L] 80 unit/L (03/13/16 1:37 AM) Alk Phos [39-136 unit/L] 0.5 mg/dL (03/13/16 1:37 AM) Bili Total [0.2-1.3 mg/dL] 0.1 mg/dL (03/13/16 1:37 AM) Bili Direct [0.0-0.3 mg/dL] 0.4 mg/dL (03/13/16 1:37 AM) Bili Indirect [0.0-1.0 mg/dL] 1Result Comment: The eGFR is calculated using [...] 3 Most recent to oldest [Reference Range]: 212 unit/L 1 *HI* (03/12/16 8:56 AM) 89 unit/L (03/12/16 2:04 AM) 132 unit/L (03/11/16 7:36 PM) Total CK [12-191 unit/L] 0.9 ng/mL (03/12/16 8:56 AM) 0.8 ng/mL (03/12/16 2:04 AM) 0.8 ng/mL (03/11/16 7:36 PM) CK MB [0.5-3.6 ng/mL] 0.4 (03/12/16 8:56 AM) 0.9 (03/12/16 2:04 AM) 0.6 (03/11/16 7:36 PM) CK MB Index [0.0-2.5] <0.010 ng/mL (03/12/16 8:56 AM) <0.010 ng/mL (03/12/16 2:04 AM) Troponin-T [0.000-0.100 ng/mL] <0.02 ng/mL (03/12/16 8:56 AM) <0.02 ng/mL (03/12/16 2:04 AM) <0.02 ng/mL (03/11/16 7:36 PM) Troponin-I [0.00-0.40 ng/mL] 1Result Comment: Specimen Grossly Hemolyzed. LIPIDS 1 2 3 Most recent to oldest [Reference Range]: 3.11 *LOW* (03/13/16 1:37 AM) CHD Risk [3.90-5.80] 143 mg/dL (03/13/16 1:37 AM) Chol [<=199 mg/dL] 92 mg/dL (03/13/16 1:37 AM) Trig [<=149 mg/dL] 46 mg/dL *LOW* (03/13/16 1:37 AM) HDL [>=61 mg/dL] 79 mg/dL (03/13/16 1:37 AM) LDL (Calculated) [<=99 mg/dL] 18 *NA* (03/13/16 1:37 AM) VLDL DRUG SCREEN 1 2 3 Most recent to oldest [Reference Range]: Negative *NA* (03/12/16 4:37 PM) U Methadone Scr [Negative] Negative *NA* (03/12/16 4:37 PM) U Propoxyph Scr [Negative] Positive *ABN* (03/12/16 4:37 PM) U Amph Scr [Negative] Negative *NA* (03/12/16 4:37 PM) U Adele Scr [Negative] Negative *NA* (03/12/16 4:37 PM) U Benzodia Scr [Negative] Negative *NA* (03/12/16 4:37 PM) U Cocaine Scr [Negative] Positive *ABN* (03/12/16 4:37 PM) U Opiate Scr [Negative] Negative *NA* (03/12/16 4:37 PM) U Phencyc Scr [Negative] Negative *NA* (03/12/16 4:37 PM) U Cannab Scr [Negative] See Note (03/12/16 4:37 PM) UDS Note URINE AND STOOL 1 2 3 Most recent to oldest [Reference Range]: Clear (03/11/16 10:13 PM) UA Turbidity [Clear] Yellow *NA* (03/11/16 10:13 PM) UA Color [Yellow] 5.5 (03/11/16 10:13 PM) UA pH [5.0-8.0] 1.015 (03/11/16 10:13 PM) UA Spec Grav [<=1.030] Negative (03/11/16 10:13 PM) UA Glucose [Negative] Negative (03/11/16 10:13 PM) UA Blood [Negative] Trace *ABN* (03/11/16 10:13 PM) UA Ketones [Negative] Negative (03/11/16 10:13 PM) UA Protein [Negative] 1.0 EU/dL (03/11/16 10:13 PM) UA Urobilinogen [0.1-1.0 EU/dL] Negative *NA* (03/11/16 10:13 PM) UA Bili [Negative] Negative (03/11/16 10:13 PM) UA Leuk Est [Negative] Positive *ABN* (03/11/16 10:13 PM) UA Nitrite [Negative] 0-2 /HPF (03/11/16 10:13 PM) UA WBC [None Seen /HPF] None Seen (03/11/16 10:13 PM) UA RBC [0-2] Few /HPF (03/11/16 10:13 PM) UA Bacteria [None Seen /HPF] Few /LPF (03/11/16 10:13 PM) UA Sq Epi [Few /LPF] Few /LPF (03/11/16 10:13 PM) UA Mucus [None Seen /LPF] IMMUNOLOGY 1 2 3 Most recent to oldest [Reference Range]: 3.5 mg/L *HI* (03/12/16 2:04 AM) CRP [<=2.9 mg/L] HEMATOLOGY 1 2 3 Most recent to oldest [Reference Range]: 13.1 K/CMM *HI* (03/11/16 7:36 PM) WBC [3.7-10.4 K/CMM] 5.01 M/CMM (03/11/16 7:36 PM) RBC [4.20-5.40 M/CMM] 13.5 g/dL (03/11/16 7:36 PM) Hgb [12.0-16.0 g/dL] 41.6 % (03/11/16 7:36 PM) Hct [36.0-48.0 %] 83.1 fL (03/11/16 7:36 PM) MCV [80.0-98.0 fL] 26.9 pg *LOW* (03/11/16 7:36 PM) MCH [27.0-31.0 pg] 32.4 g/dL (03/11/16 7:36 PM) MCHC [32.0-36.0 g/dL] 14.8 % *HI* (03/11/16 7:36 PM) RDW [11.5-14.5 %] 232 K/CMM (03/11/16 7:36 PM) Platelet [133-450 K/CMM] 8.9 fL (03/11/16 7:36 PM) MPV [7.4-10.4 fL] 63.6 % (03/11/16 7:36 PM) Segs [45.0-75.0 %] 26.1 % (03/11/16 7:36 PM) Lymphocytes [20.0-40.0 %] 8.0 % (03/11/16 7:36 PM) Monocytes [2.0-12.0 %] 1.6 % (03/11/16 7:36 PM) Eosinophils [0.0-4.0 %] 0.7 % (03/11/16 7:36 PM) Basophils [0.0-1.0 %] 8.3 K/CMM *HI* (03/11/16 7:36 PM) Segs-Bands # [1.5-8.1 K/CMM] 3.4 K/CMM (03/11/16 7:36 PM) Lymphocytes # [1.0-5.5 K/CMM] 1.0 K/CMM *HI* (03/11/16 7:36 PM) Monocytes # [0.0-0.8 K/CMM] 0.2 K/CMM (03/11/16 7:36 PM) Eosinophils # [0.0-0.5 K/CMM] 0.1 K/CMM (03/11/16 7:36 PM) Basophils # [0.0-0.2 K/CMM] 8 mm/hr (03/12/16 9:32 AM) Sed Rate [0-20 mm/hr] 13.5 seconds (03/11/16 7:36 PM) PT [12.0-14.7 seconds] 1.00 (03/11/16 7:36 PM) INR [0.85-1.17] 24.4 seconds (03/11/16 7:36 PM) PTT [22.9-35.8 seconds] Immunizations No data available for this section Procedures Procedure Date Related Diagnosis Body Site hysterectomy Cholecystectomy Gastric bypass Hysterectomy Tubal ligation Social History Social History Type Response Smoking Status Never smoker; Exposure to Tobacco Smoke None; Cigarette Smoking Last 365 Days No; Reg Smoking Cessation Counseling No Assessment and Plan Extracted from: Title: Hospitalist Progress Note Author: Bin Duran MD Date: 03/12/16 Assessment/Plan 1.Syncope f/u ECHO continue PT stroke f/u as outpt Dr. Pete [facility] [address] [facility] [place] [address] [2] 2.Headache no issues today 3.Abnormal urine acute UTI continue Ceftriaxone f/u culture 4.Leukocytosis 2/2 above 6.Hypothyroid TSH at goal continue synthroid 9.H/O: stroke reports multiple TIAs in past and was told by neurology at that would have "clusters" in the future continue ASA/plavix outpt f/u 10.Asthma prn nebs 11.Obesity PT/OT. limits recovery Orders: Wellbutrin XL, 150 mg, 1 tab, Route: PO, Drug form: ERTAB, Daily, Start date: 03/12/16 12:30:00 CDT, Duration: 30 day, Stop date: 04/11/16 9:00:00 CDT Change Attending MD Telemetry (e.g. Acute Care Floor) Prophylaxis enox Disposition home tomorrow if clears PT and culture results back. Needs cards f/u for possible loop monitor given negative holter x3 FULL CODE [facility] IM hospitalist team is primary. Please page [phone] with any questions. Extracted from: Title: Hospitalist History and Author: Brenden Blankenship MD Date: 03/11/16 Physical Assessment/Plan 1.Syncope TIA/ cardiac/ orthostasis monitor on tele, cardiac enzymes, orthostatic BP, EEG 2.Headache migraine?/ GCA ESR, CRP naproxen, norco 3.Abnormal urine follow cultures ceftriaxone 4.Leukocytosis stress response/ UTi 5.Anxiety clonazepam QHS ( home med) 6.Hypothyroid syntroid 7.Depression wellbutrin 8.Chronic back pain norco 9.H/O: stroke ASA, plavix 10.Asthma singulair, symbicort 11.Obesity counselled Orders: Rome 10/325 oral tablet, 1 tab, Route: PO, Drug Form: TAB, Dosing Weight 100, kg, Q6H, PRN Pain Score 7-10, Start date: 03/11/16 23:43:00 CDT, Duration: 30 day, Stop date: 04/10/16 23:42:00 CDT aspirin 81 mg tablet, enteric coated, 81 mg, 1 tab, Route: PO, Drug form: ECTAB, Daily, Dosing Weight 100, kg, Start date: 03/12/16 9:00:00 CDT, Duration: 30 day, Stop date: 04/10/16 9:00:00 CDT Symbicort 160/4.5 inhalation aerosol with adapter, 2 puff, Route: INHALATION, Drug Form: AERO/A, Dosing Weight 100, kg, BID, Start date: 03/12/16 9:00:00 CDT, Duration: 30 day, Stop date: 04/10/16 17:00:00 CDT Wellbutrin SR, 150 mg, Route: PO, Drug form: ERTAB, Daily, Dosing Weight 100, kg, Start date: 03/12/16 9:00:00 CDT, Duration: 30 day, Stop date: 04/10/16 9:00:00 CDT cefTRIAXone, 1 gm, Route: IVPB, Drug form: PDR/INJ, [id number], Dosing Weight 100, kg, Start date: 03/12/16 0:00:00 CDT, Duration: 30 day, Stop date: 04/10/16 0:00:00 CDT clonazePAM, 1 mg, Route: PO, Drug form: TAB, Bedtime, Dosing Weight 100, kg, Start date: 03/12/16 21:00:00 CDT, Duration: 30 day, Stop date: 04/10/16 21:00:00 CDT Plavix, 75 mg, Route: PO, Drug form: TAB, Daily, Dosing Weight 100, kg, Start date: 03/12/16 9:00:00 CDT, Duration: 30 day, Stop date: 04/10/16 9:00:00 CDT Lovenox, 40 mg, Route: SUB-Q, Drug form: INJ, Daily, Dosing Weight 100, kg, Start date: 03/12/16 9:00:00 CDT, Duration: 30 day, Stop date: 04/10/16 9:00:00 CDT folic acid, 1 mg, Route: PO, Drug form: TAB, Daily, Dosing Weight 100, kg, Start date: 03/12/16 9:00:00 CDT, Duration: 30 day, Stop date: 04/10/16 9:00:00 CDT Synthroid, 75 microgram, Route: PO, Drug form: TAB, Daily, Dosing Weight 100, kg, Start date: 03/12/16 9:00:00 CDT, Duration: 30 day, Stop date: 04/10/16 9:00:00 CDT Singulair, 5 mg, Route: CHEW, Drug form: CHEWTAB, Bedtime, Dosing Weight 100, kg, Start date: 03/12/16 21:00:00 CDT, Duration: 30 day, Stop date: 04/10/16 21:00:00 CDT Zofran, 4 mg, Route: IV, Q8H, Dosing Weight 100, kg, PRN as needed for nausea/vomiting, Start date: 03/11/16 23:38:00 CDT, Duration: 30 day, Stop date: 04/10/16 23:37:00 CDT Saline Flush 0.9%, 10 ml, Route: IVP, Drug Form: INJ, Dosing Weight 100, kg, Q12H, Start date: 03/12/16 9:00:00 CDT, Duration: 30 day, Stop date: 04/10/16 21:00:00 CDT Saline Flush 0.9%, 10 ml, Route: IVP, Drug Form: INJ, Dosing Weight 100, kg, PRN, PRN Line Flush, Start date: 03/11/16 23:36:00 CDT, Duration: 30 day, Stop date: 04/10/16 23:35:00 CDT Bedding Order Ambulation Up ad mary CDM Cardiac Enzymes Panel CDM Saline Lock CDM Syncope Observation Creatine Kinase w/ Reflex MB Isoenzyme Diet Adult Regular Urine Drug Screen (9 Drugs) ECHO Complete IV Saline Lock AC4 Magnesium Level Notify MD Provide Education AC4 Patient Education AC4 Falls Protocol Resuscitation (Code) Status Telemetry (e.g. Acute Care Floor) TSH w/ Reflex Free T4 Troponin-I Troponin-T Orthostatic BP Vital Signs Prophylaxis lovenox Disposition home in AM likely MD hospitalists primary, pager [phone] Extracted from: Title: stroke Author: Wilfredo Aguirre DO Date: 03/11/16 STROKE TEAM - CONSULT Attending of Record: Dr. Carrasquillo Patient Name: Manolo Hardy Date of Admission: 03/11/2016 Requesting Physician/Service: ER CC: syncope HISTORY OF PRESENT ILLNESS: 60 year old AAF with history of asthma/COPD, Hypotension, multiple TIAs in the past, possible right sided residual weakness from prior stroke (Wheel chair bound but able to stand and walk on her own), obesity who presents after syncopal episode, confused, headache, LSN 7pm. She was apparently walking in her lawn when she passed out, family witnessed it, no seizure like activity. She regained consciousness after 10-15 seconds. Per family, yesterday she did not have AC yesterday, she was drenched, family hanging around in backyard. Syncope witnessed by son, walking across lawn, got dizzy and fell. REVIEW OF SYSTEMS: GEN: no fever, chills, weight loss, fatigue EYES: no blurred vision, double vision CARDIO: no chest pain, palpitations PULM: no shortness of breath, cough GI: no nausea, vomiting, diarrhea, no abd pain : no frequency, dysuria, hematuria NEURO: see HPI SKIN: no rash or lesion MSK: no pain, swelling, redness, heat in muscles, no limited ROM, weakness, or atrophy, no cramps LYMPH/IMMUNO: No lymph node enlargement/tenderness, no heat/cold intolerance PAST MEDICAL HISTORY: asthma, chronic allergies, transient ischemic attack (TIA), osteoarthritis as well as morbid obesity. Hypothyroidism. PAST SURGICAL HISTORY: denies FAMILY MEDICAL HISTORY: She is , she has one son, one daughter. Her father of congestive heart failure and was also diabetic. Mother is living and in fair health. SOCIAL HISTORY: She does not smoke or drink, no IV drug use. MEDICATIONS: Plavix Aspirin Lasix Lyrica ALLERGIES: Tylenol, theophylline, penicillin. PHYSICAL EXAM: VitalsTmp(F)[id number] 03/11 20:00----[id number]--- 03/11 19:55----[id number]--- 03/11 19:46----[id number]--- 03/11 19:[id number]--- 03/11 19:[id number]--- 24 Hr Tmax: 98.3F (36.83c) at 03/11 19:38Vital Signs are the last 5 in the past 48 hours. GENERAL: Awake, drowsy, NAD. HEENT: - Normocephalic and atraumatic; MMM LUNGS - Clear to auscultation bilaterally with no wheezes CV - S1S2 RRR, no m/r/g, equal pulses bilaterally. ABDOMEN - Soft, nontender, nondistended with normoactive BS NEURO: Mental status: Awake, drowsy, and interactive. Answers questions and follows commands appropriately. Confused, believes its January 2015. Able to repeat, name. Fluent. Cranial nerves: Pupils equal, round, and reactive. R___4___mm L__4___mm. Visual rousseau intact to confrontation. Eye movements full without nystagmus. Face symmetric at rest and with activation. Facial sensation is intact to light touch. Tongue and palate midline. Good strength in trapezius and sternocleidomastoid bilaterally. Blinks to threat but reports blurry vision, unable to see fingers to controntation Motor: Normal bulk and tone. Strength is 5/5 proximally and distally. Sensation: Intact to light touch Coordination: No dysmetria on finger-nose but she had abnormal coordination likely related to pain, blurry vision. Reflexes: R Biceps 2+, Brachioradialis 2+, Patella 1+, Ankle 1+. L Biceps 2+, Brachioradialis 2+, Patella 1+, Ankle 1+. Toes downgoing bilaterally. Gait: narrow-based and steady with appropriate armswing and stride length. NIH Stroke Scale (NIHSS) 1 1a. Level of Consciousness; 0-alert 1-drowsy 2-stupor 3-comatose 1 1b. LOC Questions month and age; 0-both 1-one 2-neither 1c. LOC Commands open/close eyes, senior software developer/release non-paretic hand; 0-both 1-one 2-neither 2. Best Gaze; 0-nl 1-partial 2-forced gaze 3. Visual Rousseau; 0-No visual loss. 1-Partial hemianopia 2-Complete 3-Bilateral 4. Facial Palsy; 0-none 1-minor 2-partial 3-complete 5. Motor - R arm; 0-No drift 1-Drift 2-Some antigravity 3-No antigravity 4-No movement 6. Motor - R leg; 0-No drift 1-Drift 2-Some antigravity 3-No antigravity 4-No movement 7. Motor - L arm; 0-No drift 1-Drift 2-Some antigravity 3-No antigravity 4-No movement 8. Motor - L leg; 0-No drift 1-Drift 2-Some antigravity 3-No antigravity 4-No movement 9. Limb Ataxia; 0 absent 1 - 1limb 2 - 2 limbs 10. Sensory; 0-nl 1-partial loss 2-dense loss 11. Best Language; 0-nl 1-mild/mod 2-severe 3-mute 12. Dysarthria; 0-nl 1-mild/mod 2-severe x-untestable 13. Extinction and Inattention (formerly Neglect); 0-none 1-partial 2-complete TOTAL SCORE 2 SIGNIFICANT LABS: Creatinine: 1.15 Glucose: 99 INR: 1.0 Cardiac Markers: pend WBC 13k DIAGNOSTIC TESTS: CT Head: negative acutely, old right occipital stroke CTA/Perfusion: negative, no perfusion mismatch EKG: nsr ASSESSMENT: 60 yo AAF with history of multiple TIAs, prior right occipital stroke, hypotension, asthma who presents with syncopal episode. AC has been broken so was in the heat all day in lawn prior to episode. Exam shows fluctuation with mental status, difficulty with following commands intermittently and word finding. non- focal exam. Effort dependent. No lateralizing signs. Stroke scale 2 mostly for encephalopathy. Would work-up for syncope +/- metabolic-infectious encephalopathy. Dx: Syncope likely secondary to vasovagal (was out in the heat for long period, got dizzy and passed out) now with encephalopathy (at baseline per daughter) Etiology: work-up with metabolic-infectious PLAN Syncope work-up: TTE. Encephalopathy work up 1. Toxic-Metabolic : CBC w/diff, CMP, Thyroid panel, ABG, UDS, EKG, trops. 2. Infectious: Blood cultures x 2, UA with cultures, CXR. 3. Avoid medications which may worsen mental status, especially anticholinergics 4. Treat headache and pain. 5. Consider EEG for subclinical seizures 6. If patient does not improve, can consider MRI brain wo contrast to rule-out structural cause Case discussed with Dr. Herndon, Stroke Fellow. ACUTE STROKE BENCHMARKS: TIME PATIENT LAST SEEN NORMAL 7pm CODE STROKE ACTIVATION ([employer] COMPUTER TIME) 730pm Resident looks at his/her page time (if synced w/ [facility]) NEUROLOGY RESIDENT ARRIVAL AT THE BEDSIDE ([employer] COMPUTER TIME) 735pm Periodically, sync tPA pager with the [employer] computer time. IV TPA BOLUS (TIME AND DOSE) N/A---patient's symptoms improved and fluctuated IV TPA INFUSION (TIME AND DOSE) N/A---patient's sxs improved and fluctuated DELAYS IN THE CODE STROKE PROCESS patient encephalopathic, no family at bedside Wilfredo Aguirre DO Neurology-PGY3, ON LICENSE OF [facility] Pager#: [phone], [id number] MSO#: [id number] STROKE FACULTY I have seen and examined the patient. Furthermore, I have discussed the case with and reviewed the resident's note and agree with the history, exam, assessment and plan. See note below for additions and/or exceptions and my findings. I have personally viewed the patient's radiographic studies and laboratory tests. Exam: grossly intact, non focal. She has some stuttering speech which resolves on getting her attentions. She also had initially some rt sided weakness but it was give away. Stroke Work Up: CT: 1. No acute intracranial abnormality. 2. Old right GENERAL COUNSEL territory infarct, unchanged. CTA: 1. Normal CTA of the head. 2. Normal CTA of the neck. 3. Normal CT perfusion. ASSESSMENT: 60 y/o AAF hx of Hypothyroid/Anxiety/Depression/COPD/Multiple Syncopal episodes in the past who presents with a syncopal spell. Patient is at baseline now, it does not appear that there were neurological symptoms to point towards TIA or stroke. Nevertheless, on CT there is an old right GENERAL COUNSEL stroke which appears embolic. So Maybe in such setting event monitor would be helpful to rule out arrythmias leading to syncope and possibly stroke. She tells me she had an event monitor in the past which did not reveal any findings. However it might be helpful to repeat it. RECOMMENDATION: - Continue her home dose dual antiplatelets (I am unsure why she is on two, if no strong reason, then ASA 325 mg daily should be enough) - TTE - Event monitor - Lipid panel-> start Lipitor if LDL > 100 - Follow up with us in clinic first available: Dr. Pete MD [facility] [address] [facility] [facility] [place] [address] Will sign off. Please call us back with questions. [phone]
--- OUTSIDE RECORDS SUMMARY | 2018-12-09 08:09 | XMS REPORT | Summary of Care ---
Author Organization Unknown Address Unknown Phone Unavailable Encounter UNIQUE Martinez(CORA) [id number] Date(s): 06/29/14 - 06/29/14 [facility] [address] [place], [place] [id number] [place] [address] Discharge Diagnosis: Poison trevon dermatitis Discharge Disposition: Home Physician Attending: Jose Alberto Sher MD Reason for Visit POISON TREVON FACE Vital Signs Most recent to 1 oldest [Reference Range]: Height 172.72 cm (06/29/14 5:29 PM) Temperature Oral 98.5 DegF [96.4-99.1 DegF] (06/29/14 5:29 PM) Systolic Blood 134 mmHg Pressure [90-140 (06/29/14 5:29 PM) mmHg] Diastolic Blood 82 mmHg Pressure [60-90 (06/29/14 5:29 PM) mmHg] Respiratory Rate 18 BRMIN [14-20 BRMIN] (06/29/14 5:29 PM) Peripheral Pulse 70 bpm Rate [60-100 bpm] (06/29/14 5:29 PM) Weight 109.091 kg (06/29/14 5:29 PM) Body Mass Index 36.57 m2 (06/29/14 5:29 PM) Problem List Condition Effective Dates Status Health Status Informant Asthma(Confirmed) Resolved Back ache(Confirmed) Active Bronchitis(Confirmed Active ) CVA (cerebral Resolved vascular accident)(Confirmed) Depression(Confirmed Active ) Glaucoma(Confirmed) Resolved TIA(Confirmed) Resolved Allergies, Adverse Reactions, Alerts Substance Reaction Severity Status Latex Active penicillins Active theophylline Active Tylenol Active Medications Benadryl 50 mg, Route: PO, Drug form: CAP, ONCE, Dosing Weight 109.091, kg, Priority: STA T, Start date: 06/29/14 18:38:00, Stop date: 06/29/14 18:38:00 Start Date: 06/29/14 Stop Date: 06/29/14 Status: Completed DepoMedrol 80 mg, 1 mL, Route: IM, Drug form: SUSP, ONCE, Dosing Weight 109.091, kg, Start date: 06/29/14 18:38:00, Stop date: 06/29/14 18:38:00 Notes: (methylprednisolone acetate 80 mg/1 ml INJ VL) (Same as:Depo-Medrol) For IM use only. Start Date: 06/29/14 Stop Date: 06/29/14 Status: Completed Pepcid 40 mg oral tablet 1 tab, Route: PO, ONCE, Dosing Weight 109.091, kg, Start date: 06/29/14 18:38:00 , Stop date: 06/29/14 18:38:00 Start Date: 06/29/14 Stop Date: 06/29/14 Status: Completed predniSONE 20 mg oral tablet See Special Instructions, PO, Daily, 12 day regimen: Days 1-4 - 60 mg (3 tabs) daily Days 5-8 - 40 mg (2 tab) daily Days 9-12 - 20 mg (1 tab) daily, # 24 tab , 0 Refill(s) Special Instructions: 12 day regimen: Days 1-4 - 60 mg (3 tabs) daily Days 5-8 - 40 mg (2 tab) daily Days 9-12 - 20 mg (1 tab) daily Start Date: 06/29/14 Stop Date: 07/11/14 Status: Ordered Medications Administered During Your Visit No data available for this section Immunizations No data available for this section
[2018-12-09 12:55] VITALS: BP 128/75
--- NOTE | 2018-12-10 08:33 | Operative Report ---
DATE OF PROCEDURE: 12/09/2018 SURGEON: Tristan Horvath MD PROCEDURES: EGD with esophageal dilatation over a wire and biopsies and a colonoscopy. INDICATIONS FOR EGD: Heartburn, indigestion, dysphagia. INDICATIONS FOR COLONOSCOPY: Surveillance colonoscopy, personal history of colon polyps. MEDICATION: The patient was done under MAC, please see anesthesiologist's note. PROCEDURE IN DETAIL: With the patient in left lateral decubitus position, a flexible fiberoptic Olympus gastroscope was introduced into the esophagus under direct visualization without any difficulty. There was some patchy erythema noted in distal esophagus. Esophagus was then dilated to size 17 mm Savary over a wire. The scope was then advanced with ease. There was a gastric stapling site noted at approximately 5 cm distal to the GE junction, was traversed with ease and the mucosa overlying the antrum and the distal body revealed some diffuse erythema, and low-grade to moderate edema and biopsies were obtained, sent to stain for H pylori. Pylorus was of normal contour and shape, was intubated with ease and the scope was advanced all the way to the second portion of the duodenum. Minute nodule was noted in the proximal second portion that was biopsied. Biopsies were also obtained from the second portion and duodenal bulb to rule out sprue. The scope was then withdrawn back into the stomach and above the gastric stapling site and retroflexed, and postoperative changes were noted. The cardia appeared to be within normal limits. The scope was then straightened out, it was subsequently withdrawn. The patient tolerated the procedure well. IMPRESSION: 1. Distal esophagitis, mild. 2. The esophagus was then dilated to size 17 Savary over a wire. 3. Gastric stapling site approximately 5 cm distal to the GE junction, patent. 4. Gastritis, biopsied. Biopsies sent to stain for Helicobacter pylori. 5. Minute nodule, proximal second portion of duodenum, biopsied. 6. Rule out sprue. PLAN: Followup histology. Initiate Protonix 40 mg 1 p.o. q.a.m. before meals. The patient was then turned around. After adequate lubrication of the anal canal, a flexible fiberoptic Olympus colonoscope was inserted into the rectum with ease and advanced all the way to the cecum. It was then withdrawn slowly. Mucosa overlying the cecum, ascending colon, transverse colon, descending colon appeared to be within normal limits. A single diverticulum is noted within the sigmoid colon. The rectum appeared to be within normal limits. The scope was then retroflexed into the distal rectum and small internal hemorrhoids were noted, none of which was actively bleeding. The scope was then straightened out, it was subsequently withdrawn. The patient tolerated the procedure well. IMPRESSION: 1. Single diverticulum, sigmoid colon. 2. Internal hemorrhoids, none actively bleeding. PLAN: Initiate high-fiber low-fat diet. Initiate high-fiber supplement. The patient might benefit from a followup colonoscopy in 5-10 years. Tristan Horvath MD [facility] [place] /[id number] cc: Osmani Leonard MD
== END | disposition home or self-care (01) ==
LOC: OR 08:06
PROVIDERS: ATTEND Internal Medicine Gastroenterology
DX: Z12.11 Encounter for screening for malignant neoplasm of colon (principal); Z86.010 Personal history of colon polyps; K59.00 Constipation, unspecified; Z86.73 Personal history of transient ischemic attack (TIA), and cerebral infarction without residual deficits; J44.9 Chronic obstructive pulmonary disease, unspecified; G47.33 Obstructive sleep apnea (adult) (pediatric); K21.9 Gastro-esophageal reflux disease without esophagitis; I50.9 Heart failure, unspecified; R14.0 Abdominal distension (gaseous); K59.09 Other constipation; K29.60 Other gastritis without bleeding; R13.19 Other dysphagia; E66.01 Morbid (severe) obesity due to excess calories; Z88.0 Allergy status to penicillin; Z88.7 Allergy status to serum and vaccine; Z88.8 Allergy status to other drugs, medicaments and biological substances; Z88.6 Allergy status to analgesic agent; Z91.040 Latex allergy status; Z87.442 Personal history of urinary calculi; Z79.82 Long term (current) use of aspirin; Z98.0 Intestinal bypass and anastomosis status; Z96.651 Presence of right artificial knee joint; Z90.49 Acquired absence of other specified parts of digestive tract; Z68.42 Body mass index [BMI] 45.0-49.9, adult; K57.30 Diverticulosis of large intestine without perforation or abscess without bleeding; K64.8 Other hemorrhoids; K20.9 Esophagitis, unspecified; K29.70 Gastritis, unspecified, without bleeding; Z01.810 Encounter for preprocedural cardiovascular examination; Z01.812 Encounter for preprocedural laboratory examination
CPT/HCPCS: 36415; 43239; 43248; 45378; 85025; 93005; J2704